=== PATIENT | female | born 1960 | race African-American/Black ===

== ENCOUNTER → 2017-01-13 | Outpatient (CLI) | payer OTHER ==
--- NOTE | 2017-01-13 19:15 | PN ---
This patient is a 56-year-old female patient underwent a split-night study and she was found to have again severe symptomatic obstructive sleep apnea with an AHI of 52.8. Subsequently she was titrated at CPAP pressure of 9 cm of water and today the patient is coming in for a CPAP compliancy check. The patient is very happy with this new CPAP machine. She is wearing it every night without any interruption and her CPAP compliance data shows that she has been CPAP therapy every night and her CPAP compliancy is around 100% and she is achieving more than 4 hours of CPAP use every night. Her average CPAP use is around 9 hours per night. Leak factor is 19 liters and the patient's AHI while on treatment is down to 1.6. The patient is utilizing a Mirage FX nose pillow. She is benefiting from the treatment. She is waking up alert and awake during the day and her sleep has improved considerably and her sleep quality at night is improved. She is not waking up as much for any breathing difficulties. Her current vital signs are as follows: Her temperature is 97.9. Pulse is 69, respirations 14. [place] score is 7. Saturation 95% on room air. Weight is 242. Her blood pressure is 128/71. GENERAL APPEARANCE: Obese, calm, comfortable. HEENT: Short neck, crowding of the posterior pharynx. Mallampati class IV. LUNGS: Clear to auscultation. HEART: Sounds are regular rate and rhythm. Normal S1, S2. No S3, no S4. No murmurs. ABDOMEN: Soft, nontender. No organomegaly. EXTREMITIES: No edema. No cyanosis or clubbing. IMPRESSION: 1. Severe symptomatic obstructive sleep apnea, apnea-hypopnea index of 52. Currently utilizing CPAP with good compliance and clinical response. 2. Hypersomnia, improved. [place] score is down to 7. 3. Morbid obesity. 4. Diabetes. 5. Hyperlipidemia. 6. Hypothyroidism. 7. Bronchial asthma. PLAN: 1. Continue CPAP at the same level of pressure, which is 9 cm of water with a C-Flex of 3 utilizing a Mirage FX nose mask. 2. Compliancy data was checked and the patient is utilizing the machine without any major difficulties. 3. Encourage weight loss. 4. See me back in a year's time; earlier if needed.
== END | disposition home or self-care (01) ==
LOC: SLEEP 14:18
PROVIDERS: ATTEND Internal Medicine Critical Care Medicine
DX: G47.33 Obstructive sleep apnea (adult) (pediatric) (principal); G47.10 Hypersomnia, unspecified; E66.01 Morbid (severe) obesity due to excess calories

== ENCOUNTER 2017-10-06 05:52 | Emergency (ER) | payer BC, OTHER ==
[2017-10-06 05:59] VITALS: BP 140/69; PULSE 79; RESP 20; TEMP 98.1
[2017-10-06 06:08] LABS: Glucose,Whole Blood 193 mg/dL (75-99)
--- NOTE | 2017-10-06 06:32 | ED ---
Recheck HPI - General Chief Complaint: Recheck/Abnormal Lab/Rx Stated Complaint: High blood sugar Time Seen by Provider: 10/06/17 06:11 Source: patient Mode of arrival: ambulatory Limitations: no limitations - History of Present Illness Initial Comments: This patient is a 57-year-old woman who presents to be evaluated for hyperglycemia. The patient states that she had checked her blood sugar tonight and found to be greater than 500. She does state that she has been taking a number of xkku-ojn-rwgqncy medications for upper respiratory infection. She has had nasal and sinus congestion for going on 2 days, with a cough with a little bit of light yellow sputum. She denies any chest symptoms. She is not having dyspnea or chest congestion. She is not having pain. No fever or chills. MD Complaint: other (Elevated blood sugar) -: minutes(s) Symptoms Since Prior Visit: no new symptoms Associated Symptoms: other (Cough and congestion) - Related Data Home Medications Medication Instructions Recorded Confirmed LORazepam [Ativan] 1 mg PO BID PRN 10/12/15 12/12/15 Thyroid,Pork [[place] Thyroid] 15 mg PO DAILY 10/12/15 12/12/15 Atorvastatin [Lipitor] 40 mg PO HS 12/12/15 12/12/15 Venlafaxine HCl ER [Effexor XR] 150 mg PO HS 12/12/15 12/12/15 Previous Rx's Medication Instructions Recorded Insulin Glargine,Hum.rec.anlog 20 unit SQ HS #2 pen 12/16/15 [Lantus Solostar] Albuterol Nebulized [Ventolin 2.5 mg INHALATION Q6H PRN #30 nebu 12/21/15 Nebulized] Beclomethasone Dipropionate [Qvar 1 puff INHALATION BID #1 inhaler 12/21/15 40 mcg/puff] Cefuroxime Axetil [Ceftin] 500 mg PO DAILY #7 tablet 12/21/15 Levofloxacin [Levaquin] 750 mg PO DAILY #7 tab 12/21/15 Montelukast [Singulair] 10 mg PO HS #30 tab 12/21/15 glipiZIDE XL [Glucotrol XL] 10 mg PO AC-BRKFST #30 tab.er.24 12/21/15 predniSONE 10 mg PO DIRECTED #20 tab 12/21/15 Allergies Allergy/AdvReac Type Severity Reaction Status Date / Time codeine AdvReac Nausea & Verified 10/06/17 05:59 Vomiting Sulfa (Sulfonamide AdvReac Nausea & Verified 10/06/17 05:59 Antibiotics) Vomiting Review of Systems ROS Statement: Those systems with pertinent positive or pertinent negative responses have been documented in the HPI. ROS Other: All systems not noted in ROS Statement are negative. Constitutional: Denies: fever, chills ENT: Reports: congestion. Denies: ear pain Respiratory: Reports: cough. Denies: dyspnea, wheezes, hemoptysis Cardiovascular: Denies: chest pain, palpitations Endocrine: Denies: polydipsia, polyuria Gastrointestinal: Denies: nausea, vomiting Genitourinary: Denies: dysuria Neurological: Denies: headache Past Medical History Past Medical History: Asthma, Diabetes Mellitus, Hyperlipidemia, Sleep Apnea/ CPAP/BIPAP, Thyroid Disorder Additional Past Medical History / Comment(s): DIET CONTROLLED DIABETIC NOW R/T WEIGHT LOSS History of Any Multi-Drug Resistant Organisms: None Reported Past Surgical History: Breast Surgery, Section, Cholecystectomy Additional Past Surgical History / Comment(s): DEMETRIA FUNDOPLASTY, partial THYROIDECTOMY. LEFT BREAST BENIGN lumpectomy Past Anesthesia/Blood Transfusion Reactions: No Reported Reaction Past Psychological History: Anxiety, Depression Smoking Status: Former smoker Past Alcohol Use History: None Reported Past Drug Use History: None Reported - Past Family History Father History Unknown: Yes Family Medical History: Diabetes Mellitus General Exam Limitations: no limitations General appearance: alert, in no apparent distress Head exam: Present: atraumatic, normocephalic ENT exam: Present: normal oropharynx Respiratory exam: Present: normal lung sounds bilaterally. Absent: respiratory distress, wheezes, rales, rhonchi, stridor Cardiovascular Exam: Present: regular rate, normal rhythm, normal heart sounds. Absent: systolic murmur, diastolic murmur, rubs, gallop Extremities exam: Present: normal inspection, normal capillary refill Neurological exam: Present: alert Skin exam: Present: warm, dry, intact, normal color. Absent: rash Course Vital Signs 10/06/17 05:55 Temperature 98.1 F Pulse Rate 79 Respiratory 20 Rate Blood Pressure 140/69 O2 Sat by Pulse 98 Oximetry Medical Decision Making - Lab Data Lab Results 10/06/17 Range/Units 06:05 POC Glucose (mg/dL) 193 H (75-99) mg/dL POC Glu Efficiency Expert ID Saritha Kuo Disposition Clinical Impression: Upper respiratory infection, No problem, feared complaint unfounded Disposition: HOME SELF-CARE Condition: Good Instructions: Upper Respiratory Infection (ED) Referrals: Sammi Mendez MD [Primary Care Provider] - 1-2 days
== END 2017-10-06 06:41 | disposition home or self-care (01) ==
LOC: EC 05:52
DX: J06.9 Acute upper respiratory infection, unspecified (principal); Z71.1 Person with feared health complaint in whom no diagnosis is made; E78.5 Hyperlipidemia, unspecified; E07.9 Disorder of thyroid, unspecified; G47.30 Sleep apnea, unspecified; Z99.89 Dependence on other enabling machines and devices; F32.9 Major depressive disorder, single episode, unspecified; F41.9 Anxiety disorder, unspecified; Z87.891 Personal history of nicotine dependence; Z79.899 Other long term (current) drug therapy; Z88.2 Allergy status to sulfonamides; Z88.5 Allergy status to narcotic agent
CPT/HCPCS: 36415; 99283

== ENCOUNTER 2022-02-23 14:10 | Emergency (ER) | payer OTHER ==
[2022-02-23] MEDS ORDERED: KETOROLAC 15 MG/ML 1 ML VIAL IVP STA (14:17)
[2022-02-23 14:22] VITALS: RESP 18
[2022-02-23 14:42] LABS: Basophils % (A) 1 %; Eosinophils # (A) 0.1 k/uL (0-0.7); Eosinophils % (A) 2 %; HCT 43.1 % (34.0-46.0); HGB 13.1 gm/dL (11.4-16.0); Lymphocytes # (A) 2.9 k/uL (1.0-4.8); Lymphocytes % (A) 48 %; MCH 26.4 pg (25.0-35.0); MCHC 30.4 g/dL (31.0-37.0); MCV 86.8 fL (80.0-100.0); Mean Platelet Volume 7.7; Monocytes # (A) 0.2 k/uL (0-1.0); Monocytes % (A) 4 %; Neutrophils # (A) 2.6 k/uL (1.3-7.7); Neutrophils % (A) 43 %; Platelet Count 269 k/uL (150-450); RBC 4.97 m/uL (3.80-5.40); RDW 13.5 % (11.5-15.5)
[2022-02-23 14:53] LABS: INR 0.9 (<1.2)
[2022-02-23 14:54] LABS: Partial Thromboplastin Time 23.3 sec (22.0-30.0); Prothrombin Time 9.9 sec (9.0-12.0)
--- NOTE | 2022-02-23 15:06 | XR ---
EXAMINATION TYPE: XR chest 2V DATE OF EXAM: 02/23/2022 2:59 PM COMPARISON: Chest radiographs from 09/15/2017 TECHNIQUE: XR chest 2V Frontal and lateral views of the chest. CLINICAL INDICATION:Female, 61 years old with history of Chest Pain; FINDINGS: Lungs/Pleura: There is no evidence of pleural effusion, focal consolidation, or pneumothorax. Pulmonary vascularity: Unremarkable. Heart/mediastinum: Cardiomediastinal silhouette is unremarkable. Musculoskeletal: No acute osseous pathology. IMPRESSION: No acute cardiopulmonary disease/process.
--- NOTE | 2022-02-23 15:06 | XR ---
EXAMINATION TYPE: XR cervical spine comp DATE OF EXAM: 02/23/2022 2:59 PM INDICATION: Patient age:Female; 61 years old; Reason for study: pain COMPARISON: None TECHNIQUE: The cervical spine was imaged in frontal, lateral, odontoid, swimmer's, and bilateral obli que. FINDINGS: Evidence of acute fracture. No spinal listhesis. Straightening of the cervical spine probably due to patient position versus muscle spasm. Degenerative disc disease with mild disc space narrowing and an terior osteophytosis. The intervertebral disk spaces are preserved. Pedicles are intact. Soft tissu es are within normal limits. The odontoid appears intact. IMPRESSION: 1. No fracture or dislocation. 2. Mild degenerative disc disease changes of the cervical spine.
[2022-02-23 15:09] LABS: ALT 18 U/L (4-34); AST 31 U/L (14-36); African American GFR (CKD) >90 (>60 ml/min/1.73 sqM); Albumin 4.2 g/dL (3.5-5.0); Alkaline Phosphatase 90 U/L (38-126); Anion Gap 8 mmol/L; Blood Urea Nitrogen 7 mg/dL (7-17); Calcium 9.2 mg/dL (8.4-10.2); Carbon Dioxide 24 mmol/L (22-30); Chloride 103 mmol/L (98-107); Glucose 230 mg/dL (74-99); Magnesium 1.6 mg/dL (1.6-2.3); Non-African American GFR(CKD) >90 (>60 ml/min/1.73 sqM); Sodium 135 mmol/L (137-145); Total Bilirubin 0.5 mg/dL (0.2-1.3); Total Protein 7.4 g/dL (6.3-8.2)
[2022-02-23 15:14] LABS: Potassium 4.6 mmol/L (3.5-5.1)
[2022-02-23] MEDS ORDERED: HYDROmorphone 0.5 MG/0.5 ML SYRINGE IVP STA (15:33)
[2022-02-23] MEDS ORDERED: ONDANSETRON 4 MG/2 ML VIAL IVP STA (15:33)
--- NOTE | 2022-02-23 16:01 | ED ---
General Adult HPI - General Source: patient, EMS, RN notes reviewed Mode of arrival: EMS Limitations: no limitations <Donal Lovell - Last Filed: 02/23/22 15:59> <German Sosa - Last Filed: 02/23/22 21:39> - General Chief complaint: Neck Pain/Injury Stated complaint: neck pain Time Seen by Provider: 02/23/22 14:13 - History of Present Illness Initial comments: This a 61-year-old female presents emergency Department chief complaint of left- sided neck pain. Patient states that this started a few R's ago. Patient went to urgent care and sent here for further evaluation. Patient did receive aspirin from urgent care in which she states her pain is now 7/10. She states is constant pain but upset worsening symptoms and radiates to her left arm. She denies any lower anterior chest pain. Denies any back pain she does admit that she's on Effexor has had some lung disease and has been on medications for diabetes. Patient denies juncture breath no diaphoretic episodes of vomiting. (Donal Lovell) - Related Data Home Medications Medication Instructions Recorded Confirmed LORazepam [Ativan] 1 mg PO BID PRN 10/12/15 12/12/15 Thyroid,Pork [[place] Thyroid] 15 mg PO DAILY 10/12/15 12/12/15 Atorvastatin [Lipitor] 40 mg PO HS 12/12/15 12/12/15 Venlafaxine HCl ER [Effexor XR] 150 mg PO HS 12/12/15 12/12/15 Previous Rx's Medication Instructions Recorded Insulin Glargine,Hum.rec.anlog 20 unit SQ HS #2 pen 12/16/15 [Lantus Solostar Pen] Albuterol Nebulized [Ventolin 2.5 mg INHALATION Q6H PRN #30 nebu 12/21/15 Nebulized] Beclomethasone Dipropionate [Qvar 1 puff INHALATION BID #1 inhaler 12/21/15 40 mcg/puff] Cefuroxime Axetil [Ceftin] 500 mg PO DAILY #7 tablet 12/21/15 Levofloxacin [Levaquin] 750 mg PO DAILY #7 tab 12/21/15 Montelukast [Singulair] 10 mg PO HS #30 tab 12/21/15 glipiZIDE XL [Glucotrol XL] 10 mg PO AC-BRKFST #30 tab.er.24 12/21/15 predniSONE 10 mg PO DIRECTED #20 tab 12/21/15 methocarbamoL [Robaxin-750] 750 mg PO TID PRN 7 Days #21 tab 02/23/22 Allergies Allergy/AdvReac Type Severity Reaction Status Date / Time codeine AdvReac Nausea & Verified 10/06/17 05:59 Vomiting Sulfa (Sulfonamide AdvReac Nausea & Verified 10/06/17 05:59 Antibiotics) Vomiting Review of Systems ROS Other: All systems not noted in ROS Statement are negative. <Donal Lovell - Last Filed: 02/23/22 15:59> ROS Other: All systems not noted in ROS Statement are negative. <German Sosa - Last Filed: 02/23/22 21:39> ROS Statement: Those systems with pertinent positive or pertinent negative responses have been documented in the HPI. Past Medical History Past Medical History: Asthma, Diabetes Mellitus, Hyperlipidemia, Sleep Apnea/CPAP/BIPAP, Thyroid Disorder Additional Past Medical History / Comment(s): DIET CONTROLLED DIABETIC NOW R/T WEIGHT LOSS History of Any Multi-Drug Resistant Organisms: None Reported Past Surgical History: Breast Surgery, Section, Cholecystectomy Additional Past Surgical History / Comment(s): DEMETRIA FUNDOPLASTY, partial T HYROIDECTOMY. LEFT BREAST BENIGN lumpectomy Past Anesthesia/Blood Transfusion Reactions: No Reported Reaction Past Psychological History: Anxiety, Depression Smoking Status: Never smoker Past Alcohol Use History: None Reported Past Drug Use History: None Reported - Past Family History Father History Unknown: Yes Family Medical History: Diabetes Mellitus <Donal Lovell - Last Filed: 02/23/22 15:59> General Exam Limitations: no limitations General appearance: alert, in no apparent distress Head exam: Present: atraumatic, normocephalic, normal inspection Eye exam: Present: normal appearance, PERRL, EOMI. Absent: scleral icterus, conjunctival injection, periorbital swelling ENT exam: Present: normal exam, normal oropharynx, mucous membranes moist Neck exam: Present: normal inspection, full ROM. Absent: tenderness, meningismus, lymphadenopathy Respiratory exam: Present: normal lung sounds bilaterally. Absent: respiratory distress, wheezes, rales, rhonchi, stridor Cardiovascular Exam: Present: regular rate, normal rhythm, normal heart sounds. Absent: systolic murmur, diastolic murmur, rubs, gallop, clicks GI/Abdominal exam: Present: soft, normal bowel sounds. Absent: distended, tenderness, guarding, rebound, rigid Extremities exam: Present: other (Upper extremity strength equal bilaterally, radial pulses equal) Neurological exam: Present: alert <Donal Lovell - Last Filed: 02/23/22 15:59> Course Vital Signs 02/23/22 02/23/22 02/23/22 14:19 15:48 18:02 Temperature 97.8 F 98 F Pulse Rate 63 61 63 Respiratory 18 18 18 Rate Blood Pressure 129/78 109/73 110/70 O2 Sat by Pulse 99 99 96 Oximetry Medical Decision Making - Lab Data Result diagrams: 02/23/22 14:34 02/23/22 14:34 <Donal Lovell - Last Filed: 02/23/22 15:59> - Lab Data Result diagrams: 02/23/22 14:34 02/23/22 14:34 <German Sosa - Last Filed: 02/23/22 21:39> - Medical Decision Making Patient signed out pending results of CT imaging. Presents for sudden onset of left-sided neck pain of unknown etiology. Workup thus far is unremarkable. I updated the patient regarding the CT angiogram which was pending. It was within normal limits. We discussed she is likely experiencing muscle skeletal pain. Will be given muscle relaxers for home and follow up with PCP. She was in agreement this plan. Remainder the workup is unremarkable. Never had chest pain. No other symptoms. I instructed the patient to follow up with their PCP in the next 1-3 days. I explained that the patient should return to the emergency department if they experience any worsening symptoms. Strict return precautions were discussed with the patient. The patient expressed understanding of these instructions. I answered all questions that the patient had. The patient was discharged home in good condition with their prescriptions and follow up information. (German Sosa) - Lab Data Lab Results 02/23/22 02/23/22 02/23/22 Range/Units 14:34 14:34 14:34 WBC 6.0 (3.8-10.6) k/uL RBC 4.97 (3.80-5.40) m/uL Hgb 13.1 (11.4-16.0) gm/dL Hct 43.1 (34.0-46.0) % MCV 86.8 (80.0-100.0) fL MCH 26.4 (25.0-35.0) pg MCHC 30.4 L (31.0-37.0) g/dL RDW 13.5 (11.5-15.5) % Plt Count 269 (150-450) k/uL MPV 7.7 Neutrophils % 43 % Lymphocytes % 48 % Monocytes % 4 % Eosinophils % 2 % Basophils % 1 % Neutrophils # 2.6 (1.3-7.7) k/uL Lymphocytes # 2.9 (1.0-4.8) k/uL Monocytes # 0.2 (0-1.0) k/uL Eosinophils # 0.1 (0-0.7) k/uL Basophils # 0.0 (0-0.2) k/uL PT 9.9 (9.0-12.0) sec INR 0.9 (<1.2) APTT 23.3 (22.0-30.0) sec Sodium 135 L (137-145) mmol/L Potassium 4.6 (3.5-5.1) mmol/L Chloride 103 (98-107) mmol/L Carbon Dioxide 24 (22-30) mmol/L Anion Gap 8 mmol/L BUN 7 (7-17) mg/dL Creatinine 0.47 L (0.52-1.04) mg/dL Est GFR (CKD-EPI)AfAm >90 (>60 ml/min/1.73 sqM) Est GFR (CKD-EPI)NonAf >90 (>60 ml/min/1.73 sqM) Glucose 230 H (74-99) mg/dL Calcium 9.2 (8.4-10.2) mg/dL Magnesium 1.6 (1.6-2.3) mg/dL Total Bilirubin 0.5 (0.2-1.3) mg/dL AST 31 (14-36) U/L ALT 18 (4-34) U/L Alkaline Phosphatase 90 (38-126) U/L Troponin I (0.000-0.034) ng/mL Total Protein 7.4 (6.3-8.2) g/dL Albumin 4.2 (3.5-5.0) g/dL 02/23/22 Range/Units 14:34 WBC (3.8-10.6) k/uL RBC (3.80-5.40) m/uL Hgb (11.4-16.0) gm/dL Hct (34.0-46.0) % MCV (80.0-100.0) fL MCH (25.0-35.0) pg MCHC (31.0-37.0) g/dL RDW (11.5-15.5) % Plt Count (150-450) k/uL MPV Neutrophils % % Lymphocytes % % Monocytes % % Eosinophils % % Basophils % % Neutrophils # (1.3-7.7) k/uL Lymphocytes # (1.0-4.8) k/uL Monocytes # (0-1.0) k/uL Eosinophils # (0-0.7) k/uL Basophils # (0-0.2) k/uL PT (9.0-12.0) sec INR (<1.2) APTT (22.0-30.0) sec Sodium (137-145) mmol/L Potassium (3.5-5.1) mmol/L Chloride (98-107) mmol/L Carbon Dioxide (22-30) mmol/L Anion Gap mmol/L BUN (7-17) mg/dL Creatinine (0.52-1.04) mg/dL Est GFR (CKD-EPI)AfAm (>60 ml/min/1.73 sqM) Est GFR (CKD-EPI)NonAf (>60 ml/min/1.73 sqM) Glucose (74-99) mg/dL Calcium (8.4-10.2) mg/dL Magnesium (1.6-2.3) mg/dL Total Bilirubin (0.2-1.3) mg/dL AST (14-36) U/L ALT (4-34) U/L Alkaline Phosphatase (38-126) U/L Troponin I <0.012 (0.000-0.034) ng/mL Total Protein (6.3-8.2) g/dL Albumin (3.5-5.0) g/dL Disposition <Donal Lovell - Last Filed: 02/23/22 15:59> Is patient prescribed a controlled substance at d/c from ED?: No Time of Disposition: 17:30 <German Sosa - Last Filed: 02/23/22 21:39> Clinical Impression: Neck pain Disposition: HOME SELF-CARE Condition: Good Instructions (If sedation given, give patient instructions): Cervical Sprain (ED) Prescriptions: methocarbamoL [Robaxin-750] 750 mg PO TID PRN 7 Days #21 tab PRN Reason: Pain Referrals: None,Stated [Primary Care Provider] - 1-2 days
--- NOTE | 2022-02-23 17:17 | CT ---
EXAMINATION TYPE: CT angio neck CT DLP: 813.3 mGycm, Automated exposure control for dose reduction was used. DATE OF EXAM: 02/23/2022 5:03 PM COMPARISON: Cervical spine radiograph the same date. CLINICAL INDICATION:Female, 61 years old with history of left side neck pain; TECHNIQUE: Axially acquired helical CT angiogram of neck was obtained with contrast utilizing 65 cc o f Isovue-370 administered intravenously. Axial images are supplemented with 3D reconstructions which were post-processed at an independent workstation. NASCET criteria used. FINDINGS: CTA NECK: Right Carotid System: The common carotid artery and external carotid artery are patent. Minimal calcified plaque at the car otid bifurcation. The carotid bifurcation demonstrates no evidence of hemodynamically significant monica nosis. The remaining portions of the internal carotid artery demonstrate normal size without signific ant narrowing. Left Carotid System: The common carotid artery and external carotid artery are patent. Minimal calcified plaque at the car otid bifurcation. The carotid bifurcation demonstrates no evidence of hemodynamically significant monica nosis. The remaining portions of the internal carotid artery demonstrate normal size without signific ant narrowing. Vertebral arteries are patent without evidence hemodynamically significant stenosis. Left vertebral a rtery is dominant. There is a three-vessel aortic arch. The origins of the great vessels are patent. No evidence of hemo dynamically significant stenosis. Residual left thyroid tissue remaining. The right thyroid lobe is u nremarkable. IMPRESSION: No evidence of dissection of the cervical internal carotid arteries or vertebral arteries or any evid ence of significant stenosis at the carotid bifurcations.
[2022-02-23 18:04] VITALS: BP 110/70; PULSE 63; TEMP 98
== END 2022-02-23 18:02 | disposition home or self-care (01) ==
LOC: EC 14:10
DX: M54.2 Cervicalgia (principal); E11.9 Type 2 diabetes mellitus without complications; E78.5 Hyperlipidemia, unspecified; E07.9 Disorder of thyroid, unspecified; J45.909 Unspecified asthma, uncomplicated; Z88.5 Allergy status to narcotic agent; Z88.2 Allergy status to sulfonamides; Z79.890 Hormone replacement therapy; Z79.899 Other long term (current) drug therapy
CPT/HCPCS: 36415; 93005; 80053; 83735; 84484; 85025; 85610; 85730; 72050; 71046; 70498; 99284; 96374; 96375; J2405; J1885; J1170; Q9967

== ENCOUNTER → 2024-02-29 | Outpatient (CLI) | payer OTHER ==
--- NOTE | 2024-02-29 09:56 | FL ---
EXAMINATION TYPE: FL UGI air w esophagus DATE OF EXAM: 02/29/2024 8:30 AM CLINICAL INDICATION:Female, 63 years old with history of K21.9 GERD; COMPARISON: 12/13/2015 TECHNIQUE: The procedure was explained and patient history elicited. All patient questions were ans wered prior to start of procedure. A baseball scout radiograph of the abdomen was also reviewed. Multiple flu oroscopic spot images of the esophagus, stomach and duodenum were obtained following ingestion of liq uid barium and EZ-gas crystals. Fluoroscopic time: 1 Min 34 seconds Fluoroscopic images:0 Radiographs taken: 128 DAP: Not reported [id number] FINDINGS: The esophagus appears unremarkable without evidence of focal stricture, ulceration or abnormal outpou reagan. Tertiary contractions are seen in distal esophagus. No hiatal hernia was visualized. No evide nce of gastroesophageal reflux was seen. The stomach and duodenum demonstrate a normal course and con tour. There is no evidence of focal gastric or duodenal ulceration, stricture, or abnormal outpouchi ng. IMPRESSION: Esophageal dysmotility in an otherwise normal examination.
== END | disposition home or self-care (01) ==
LOC: RADFLMAIN 07:29
PROVIDERS: ATTEND Surgery
DX: K21.9 Gastro-esophageal reflux disease without esophagitis (principal); K22.4 Dyskinesia of esophagus
CPT/HCPCS: 74246

== ENCOUNTER → 2024-07-05 | Outpatient (CLI) | payer OTHER ==
[2024-07-05 13:54] VITALS: BP 142/81; PULSE 82; RESP 16; TEMP 98
--- NOTE | 2024-07-05 14:24 | P.SLEEP ---
History of Present Illness H&P Date: 07/05/24 This is a 64-year-old -[place] female patient, Holiness, who is coming into update her CPAP machine. The patient is known to me. Her last encounter with me was back in 2017. She is a longtime CPAP user. She has undergone a split-night study at the time of original diagnosis and the patient was diagnosed having severe symptomatic obstructive sleep apnea with an AHI of 58 and following that the patient was given a CPAP pressure of 9 cm of water. Over the years, the patient has remained extremely compliant to her CPAP therapy and the patient utilized the machine without any major issues. Her current machine is broke and the patient is requesting a new machine. Over the years, she has remained extremely compliant and while on treatment, the patient has not encountered any major hypersomnia or sleepiness. She uses her machine every night. No snoring while on the machine. For now, she sleep between midnight and 9 AM in the morning. No major hypersomnia or sleepiness during the day. Since 2017, the patient has lost weight and her current weight is down to 215 fr om a baseline of 242. She has diabetes mellitus type 2, hyperlipidemia and hypothyroidism and history of bronchial asthma which is currently inactive and stable. No sleepwalking. No sleep talking. Mostly paralysis. No hallucination or cataplexy. No history of any motor vehicle accidents because of feeling drowsy or sleepy. No reported restlessness in her lower extremities. No grinding. No palpitations. No heartburn. No issues with memory or concentration as long as she is maintained on her CPAP machine. She is using a Mirage fx nasal mask. She requested on staying on the same or a similar nasal mask interface. Review of Systems Constitutional: Reports weight loss Eyes: denies as per HPI, denies blurred vision, denies bulging eye, denies decreased vision, denies diplopia, denies discharge, denies dry eye, denies irritation, denies itching, denies pain, denies photophobia, denies loss of peripheral vision, denies loss of vision, denies tunnel vision/blind spots Ears: deny: decreased hearing, ear discharge, earache, tinnitus Ears, nose, mouth and throat: Reports as per HPI Breasts: absent: as per HPI, change in shape, gynecomastia, masses, nipple discharge, pain, skin changes, swelling Breasts: Reports as per HPI Cardiovascular: Reports as per HPI Respiratory: Reports sleep apnea Gastrointestinal: Reports as per HPI Genitourinary: Reports as per HPI Menstruation: Reports as per HPI Musculoskeletal: Reports as per HPI Musculoskeletal: absent: ankle pain, ankle stiffness, ankle swelling, as per HPI, elbow pain, elbow stiffness, elbow swelling, foot pain, foot stiffness, foot swelling, hand pain, hand stiffness, hand swelling, hip pain, hip stiffness, hip swelling, knee pain, knee stiffness, knee swelling, shoulder pain, shoulder stiffness, shoulder swelling, wrist pain, wrist stiffness, wrist swelling Integumentary: Reports as per HPI Neurological: Reports as per HPI Psychiatric: Reports as per HPI Endocrine: Reports as per HPI Hematologic/Lymphatic: Reports as per HPI Allergic/Immunologic: Reports as per HPI Past Medical History Past Medical History: Asthma, Diabetes Mellitus, Hyperlipidemia, Sleep Apnea/CPAP/BIPAP, Thyroid Disorder Additional Past Medical History / Comment(s): DIET CONTROLLED DIABETIC NOW R/T WEIGHT LOSS History of Any Multi-Drug Resistant Organisms: None Reported Past Surgical History: Breast Surgery, Section, Cholecystectomy Additional Past Surgical History / Comment(s): DEMETRIA FUNDOPLASTY, partial THYROIDECTOMY. LEFT BREAST BENIGN lumpectomy Past Anesthesia/Blood Transfusion Reactions: No Reported Reaction Past Psychological History: Anxiety, Depression Additional Psychological History / Comment(s): SEVERE ANXIETY Smoking Status: Never smoker Past Alcohol Use History: None Reported Additional Past Alcohol Use History / Comment(s): QUIT: 2005. STARTED 1995 PPD: 1 Past Drug Use History: None Reported - Past Family History Father History Unknown: Yes Family Medical History: Diabetes Mellitus Medications and Allergies Home Medications and Allergies Comment(s): Patient was unable to bring her medication list. Among the medications that she remembers is Effexor 150 mg p.o. daily. Home Medications Medication Instructions Recorded Confirmed Type Venlafaxine HCl ER [Effexor XR] 150 mg PO HS 12/12/15 07/05/24 History Allergies Allergy/AdvReac Type Severity Reaction Status Date / Time codeine AdvReac Nausea & Verified 03/03/24 07:21 Vomiting Sulfa (Sulfonamide AdvReac Nausea & Verified 03/03/24 07:21 Antibiotics) Vomiting Physical Exam Vitals: Vital Signs Temp Pulse Resp BP Pulse Ox 07/05/24 13:53 98 F 82 16 142/81 98 Intake and Output 07/04/24 07/05/24 07/05/24 22:59 06:59 14:59 Other: Weight 97.522 kg The patient appeared well nourished and normally developed. Vital signs as documented. Head exam is unremarkable. No scleral icterus or corneal arcus noted. Neck is without jugular venous distension, thyromegaly, or carotid bruits. Carotid upstrokes are brisk bilaterally. Lungs are clear to auscultation and percussion. Cardiac exam reveals the PMI to be normally sized and situated. Rhythm is regular. First and second heart sounds normal. No murmurs, rubs or gallops. Abdominal exam reveals normal bowel sounds, no masses, no organomegaly and no aortic enlargement. Extremities are nonedematous and both femoral and pedal pulses are normal. Examination of the skin revealed no evidence of significant rashes, suspicious appearing nevi or other concerning lesions. Neurologically, the patient is awake and alert and the patient does not have any focal neurological deficit. Cranial nerves are essentially intact. Assessment and Plan Plan: Severe symptomatic obstructive sleep apnea. The patient had a split-night study back in 2017 patient was diagnosed having severe ROXY with an AHI of 52.8 and the patient is currently on CPAP pressure of 9 cm of water. Her current machine is broken and the patient is requesting a new CPAP unit. Over the years, she has demonstrated excellent compliancy and clinical response. She has also lost weight. No major hypersomnia or sleepiness as long as she is maintaining CPAP therapy. Her current Flournoy score is 8. No other cardiovascular complications. She has diabetes and has hyperlipidemia and history of hypothyroidism. Diabetes mellitus type 2 Hyperlipidemia Hypothyroidism Mild intermittent bronchial asthma Obesity with a current BMI of 32.8. Patient has lost weight. Plan This patient is a longtime CPAP user. Do not see the need to repeat her sleep study at this point in time. I am going to offer her a new CPAP machine through her DME, [facility] and the patient is going to be offered a ResMed 11 of the CPAP pressure of 9 cm of water with C-Flex of 3. I am going to switch her to an AirFit N20 medium size nasal mask. The patient will see back in office in 30 to 90 days to assess her clinical response and compliancy. If needed, home sleep study will be also obtained to confirm presence of sleep apnea and establish ongoing need of treatment. Maintain good sleep hygiene measures. Encouraged further weight loss Comorbidities are negative and stable Will continue to follow Sleep Note - Sleep Data ESS Total: 8 - Sleep Note Sleep Note: Temperature: 98 F Pulse Rate: 82 Respiratory Rate: 16 Blood Pressure: 142/81 SpO2: 98 Height: 5 ft 8 in Weight: 97.522 kg BMI: Neck Circumference: 15
== END ==
LOC: 3 N SLEEP 13:13
PROVIDERS: ATTEND Internal Medicine Critical Care Medicine
DX: G47.33 Obstructive sleep apnea (adult) (pediatric) (principal); Z99.89 Dependence on other enabling machines and devices; E11.9 Type 2 diabetes mellitus without complications; E78.5 Hyperlipidemia, unspecified; E03.9 Hypothyroidism, unspecified; J45.20 Mild intermittent asthma, uncomplicated; E66.9 Obesity, unspecified; Z68.32 Body mass index [BMI] 32.0-32.9, adult; Z87.891 Personal history of nicotine dependence; Z88.2 Allergy status to sulfonamides; Z88.5 Allergy status to narcotic agent
CPT/HCPCS: 99211

== ENCOUNTER 2024-09-24 20:35 | Inpatient (IN) | payer OTHER ==
--- NOTE | 2024-09-24 21:20 | ED ---
General Adult HPI - General Chief complaint: Weakness Stated complaint: weakness Time Seen by Provider: 09/24/24 21:06 Source: patient, RN notes reviewed, old records reviewed Mode of arrival: wheelchair Limitations: no limitations - History of Present Illness Initial comments: 64-year-old female with increased weakness and fatigue over the past 10 days. Patient states that about 6 days ago she began a keto diet and was also started on Jardiance. She states her symptoms began prior to this. She complains of constipation. No vomiting or diarrhea. No chest pain. She states she has been sneezing but has not had any significant cough. No fever. - Related Data Home Medications Medication Instructions Recorded Confirmed Venlafaxine HCl ER [Effexor XR] 150 mg PO HS 12/12/15 07/05/24 Allergies Allergy/AdvReac Type Severity Reaction Status Date / Time codeine AdvReac Nausea & Verified 09/24/24 20:36 Vomiting Sulfa (Sulfonamide AdvReac Nausea & Verified 09/24/24 20:36 Antibiotics) Vomiting Review of Systems ROS Statement: Those systems with pertinent positive or pertinent negative responses have been documented in the HPI. ROS Other: All systems not noted in ROS Statement are negative. Past Medical History Past Medical History: Asthma, Diabetes Mellitus, Hyperlipidemia, Sleep Apnea/CPAP/BIPAP, Thyroid Disorder Additional Past Medical History / Comment(s): DIET CONTROLLED DIABETIC NOW R/T WEIGHT LOSS History of Any Multi-Drug Resistant Organisms: None Reported Past Surgical History: Breast Surgery, Section, Cholecystectomy Additional Past Surgical History / Comment(s): DEMETRIA FUNDOPLASTY, partial THYROIDECTOMY. LEFT BREAST BENIGN lumpectomy Past Anesthesia/Blood Transfusion Reactions: No Reported Reaction Past Psychological History: Anxiety, Depression Smoking Status: Never smoker Past Alcohol Use History: None Reported Past Drug Use History: None Reported - Past Family History Father History Unknown: Yes Family Medical History: Diabetes Mellitus General Exam Limitations: no limitations General appearance: alert, in no apparent distress Head exam: Present: atraumatic, normocephalic Eye exam: Present: normal appearance, PERRL ENT exam: Present: mucous membranes dry Respiratory exam: Present: normal lung sounds bilaterally. Absent: respiratory distress, wheezes Cardiovascular Exam: Present: regular rate, normal rhythm GI/Abdominal exam: Present: soft. Absent: distended, tenderness, guarding Extremities exam: Present: normal inspection, normal capillary refill Neurological exam: Present: alert, oriented X3, CN II-XII intact. Absent: motor sensory deficit Psychiatric exam: Present: normal affect, normal mood Skin exam: Present: warm, dry, intact Course Vital Signs 09/24/24 09/24/24 20:37 22:37 Temperature 97.4 F L 97.8 F Pulse Rate 104 H 76 Respiratory 20 16 Rate Blood Pressure 143/82 151/83 O2 Sat by Pulse 100 100 Oximetry Medical Decision Making - Medical Decision Making Was pt. sent in by a medical professional or institution (, [place], ASSISTANT CHIEF TRAIN DISPATCHER, urgent care, hospital, or fci...) When possible be specific @ -No Did you speak to anyone other than the patient for history (EMS, parent, family, police, friend...)? What history was obtained from this source @ -No Did you review nursing and triage notes (agree or disagree)? Why? @ -I reviewed and agree with nursing and triage notes Were old charts reviewed (outside hosp., previous admission, EMS record, old EKG, old radiological studies, urgent care reports/EKG's, fci records)? Report findings @ -No old charts were reviewed Differential Weakness: Hypoglycemia, shock, sepsis, hyponatremia, anemia, infection, PA, ETOH, adverse medicine reaction, overdose, stroke, this is not meant to be an all-inclusive list. EKG interpreted by me (3pts min.). @Sinus rhythm rate of 98, OK interval 143, QRS duration 76, QTc [address] segment elevation. X-rays interpreted by me (1pt min.). @ -Chest x-ray negative for focal pneumonia, no acute findings, KUB negative for obstruction CT interpreted by me (1pt min.). @ -None done U/S interpreted by me (1pt. min.). @ -None done What testing was considered but not performed or refused? (CT, X-rays, U/S, labs)? Why? @ -None What meds were considered but not given or refused? Why? @ -None Did you discuss the management of the patient with other professionals (professionals i.e. [place] Chavez, ASSISTANT CHIEF TRAIN DISPATCHER, lab, RT, psych nurse, psychiatric social worker supervisor, music education director, teacher, fisheries officer, bilingual patient support caseworker)? Give summary @Case discussed with Dr. Abid Was smoking cessation discussed for >3mins.? @ -No Was critical care preformed (if so, how long)? @ -[Yes, 35 minutes Were there social determinants of health that impacted care today? How? (Homelessness, low income, unemployed, alcoholism, drug addiction, transportation, low edu. Level, literacy, decrease access to med. care, custodial, rehab)? @ -No Was there de-escalation of care discussed even if they declined (Discuss DNR or withdrawal of care, Hospice)? DNR status @ -No What co-morbidities impacted this encounter? (DM, HTN, Smoking, COPD, CAD, Cancer, CVA, ARF, Chemo, Hep., AIDS, mental health diagnosis, sleep apnea, morbid obesity)? @Diabetes Was patient admitted / discharged? Hospital course, mention meds given and route, prescriptions, significant lab abnormalities, going to OR and other pertinent info. @ -[64-year-old female with weakness, poor appetite. Patient is vital signs stable. She was recently started on Jardiance and started a ketone diet. Patient has laboratory test revealing DKA with an CO2 of 9 anion gap of 23, blood sugar 190. She is acetone positive with ketones 4+ in the urine. Started on normal saline as well as dextrose and insulin drip. Admitted to [facility] emergency department physician group. Undiagnosed new problem with uncertain prognosis? @ -No Drug Therapy requiring intensive monitoring for toxicity (Heparin, Nitro, Insulin, Cardizem)? @ -No Were any procedures done? @ -No Diagnosis/symptom? @DKA, dehydration Acute, or Chronic, or Acute on Chronic? @Acute Uncomplicated (without systemic symptoms) or Complicated (systemic symptoms)? @ -[Complicated Side effects of treatment? @ -No Exacerbation, Progression, or Severe Exacerbation? @ -No Poses a threat to life or bodily function? How? (Chest pain, USA, PA, pneumonia, PE, COPD, DKA, ARF, appy, cholecystitis, CVA, Diverticulitis, Homicidal, Suicidal, threat to staff... and all critical care pts) @Yes, DKA - Lab Data Result diagrams: 09/24/24 21:18 09/24/24 21:18 Lab Results 09/24/24 09/24/24 09/24/24 Range/Units 21:15 21:18 21:18 WBC 7.4 (3.8-10.6) k/uL RBC 5.47 H (3.80-5.40) m/uL Hgb 14.5 (11.4-16.0) gm/dL Hct 47.0 H (34.0-46.0) % MCV 86.0 (80.0-100.0) fL MCH 26.5 (25.0-35.0) pg MCHC 30.8 L (31.0-37.0) g/dL RDW 13.6 (11.5-15.5) % Plt Count 351 (150-450) k/uL MPV 7.4 Neutrophils % 60 % Lymphocytes % 33 % Monocytes % 4 % Eosinophils % 1 % Basophils % 0 % Neutrophils # 4.4 (1.3-7.7) k/uL Lymphocytes # 2.4 (1.0-4.8) k/uL Monocytes # 0.3 (0-1.0) k/uL Eosinophils # 0.1 (0-0.7) k/uL Basophils # 0.0 (0-0.2) k/uL Hypochromasia Slight PT 11.4 (10.0-12.5) sec INR 1.0 (<1.2) APTT 28.2 (22.0-30.0) sec Sodium (137-145) mmol/L Potassium (3.5-5.1) mmol/L Chloride (98-107) mmol/L Carbon Dioxide (22-30) mmol/L Anion Gap mmol/L BUN (7-17) mg/dL Creatinine (0.52-1.04) mg/dL Est GFR (CKD-EPI)AfAm (>60 ml/min/1.73 sqM) Est GFR (CKD-EPI)NonAf (>60 ml/min/1.73 sqM) Glucose (74-99) mg/dL Plasma Lactic Acid Jose Antonio (0.7-2.0) mmol/L Calcium (8.4-10.2) mg/dL Magnesium (1.6-2.3) mg/dL Total Bilirubin (0.2-1.3) mg/dL AST (14-36) U/L ALT (4-34) U/L Alkaline Phosphatase (38-126) U/L Troponin I (0.000-0.034) ng/mL Total Protein (6.3-8.2) g/dL Albumin (3.5-5.0) g/dL Urine Color Colorless Urine Appearance Cloudy H (Clear) Urine pH 5.5 (5.0-8.0) Ur Specific [place] 1.024 (1.001-1.035) Urine Protein 1+ H (Negative) Urine Glucose (UA) 4+ H (Negative) Urine Ketones 4+ H (Negative) Urine Blood Negative (Negative) Urine Nitrite Negative (Negative) Urine Bilirubin Negative (Negative) Urine Urobilinogen 2.0 (<2.0) mg/dL Ur Leukocyte Esterase Negative (Negative) Urine RBC 1 (0-5) /hpf Urine WBC 3 (0-5) /hpf Ur Squamous Epith Cells 10 H (0-4) /hpf Amorphous Sediment Rare H (None) /hpf Urine Bacteria Rare H (None) /hpf Hyaline Casts 45 H (0-2) /lpf Urine Mucus Rare H (None) /hpf Acetone, Qual (Negative) Influenza Type A (PCR) (Not Detectd) Influenza Type B (PCR) (Not Detectd) RSV (PCR) (Not Detectd) SARS-CoV-2 (PCR) (Not Detectd) 09/24/24 09/24/24 09/24/24 Range/Units 21:18 21:18 21:18 WBC (3.8-10.6) k/uL RBC (3.80-5.40) m/uL Hgb (11.4-16.0) gm/dL Hct (34.0-46.0) % MCV (80.0-100.0) fL MCH (25.0-35.0) pg MCHC (31.0-37.0) g/dL RDW (11.5-15.5) % Plt Count (150-450) k/uL MPV Neutrophils % % Lymphocytes % % Monocytes % % Eosinophils % % Basophils % % Neutrophils # (1.3-7.7) k/uL Lymphocytes # (1.0-4.8) k/uL Monocytes # (0-1.0) k/uL Eosinophils # (0-0.7) k/uL Basophils # (0-0.2) k/uL Hypochromasia PT (10.0-12.5) sec INR (<1.2) APTT (22.0-30.0) sec Sodium 133 L (137-145) mmol/L Potassium 4.9 (3.5-5.1) mmol/L Chloride 101 (98-107) mmol/L Carbon Dioxide 9 L* (22-30) mmol/L Anion Gap 23 mmol/L BUN 17 (7-17) mg/dL Creatinine 0.80 (0.52-1.04) mg/dL Est GFR (CKD-EPI)AfAm >90 (>60 ml/min/1.73 sqM) Est GFR (CKD-EPI)NonAf 78 (>60 ml/min/1.73 sqM) Glucose 190 H (74-99) mg/dL Plasma Lactic Acid Jose Antonio 1.9 (0.7-2.0) mmol/L Calcium 9.8 (8.4-10.2) mg/dL Magnesium 1.9 (1.6-2.3) mg/dL Total Bilirubin 0.8 (0.2-1.3) mg/dL AST 30 (14-36) U/L ALT 23 (4-34) U/L Alkaline Phosphatase 85 (38-126) U/L Troponin I <0.012 (0.000-0.034) ng/mL Total Protein 8.3 H (6.3-8.2) g/dL Albumin 4.6 (3.5-5.0) g/dL Urine Color Urine Appearance (Clear) Urine pH (5.0-8.0) Ur Specific [place] (1.001-1.035) Urine Protein (Negative) Urine Glucose (UA) (Negative) Urine Ketones (Negative) Urine Blood (Negative) Urine Nitrite (Negative) Urine Bilirubin (Negative) Urine Urobilinogen (<2.0) mg/dL Ur Leukocyte Esterase (Negative) Urine RBC (0-5) /hpf Urine WBC (0-5) /hpf Ur Squamous Epith Cells (0-4) /hpf Amorphous Sediment (None) /hpf Urine Bacteria (None) /hpf Hyaline Casts (0-2) /lpf Urine Mucus (None) /hpf Acetone, Qual (Negative) Influenza Type A (PCR) (Not Detectd) Influenza Type B (PCR) (Not Detectd) RSV (PCR) (Not Detectd) SARS-CoV-2 (PCR) (Not Detectd) 09/24/24 09/24/24 Range/Units 21:19 22:21 WBC (3.8-10.6) k/uL RBC (3.80-5.40) m/uL Hgb (11.4-16.0) gm/dL Hct (34.0-46.0) % MCV (80.0-100.0) fL MCH (25.0-35.0) pg MCHC (31.0-37.0) g/dL RDW (11.5-15.5) % Plt Count (150-450) k/uL MPV Neutrophils % % Lymphocytes % % Monocytes % % Eosinophils % % Basophils % % Neutrophils # (1.3-7.7) k/uL Lymphocytes # (1.0-4.8) k/uL Monocytes # (0-1.0) k/uL Eosinophils # (0-0.7) k/uL Basophils # (0-0.2) k/uL Hypochromasia PT (10.0-12.5) sec INR (<1.2) APTT (22.0-30.0) sec Sodium (137-145) mmol/L Potassium (3.5-5.1) mmol/L Chloride (98-107) mmol/L Carbon Dioxide (22-30) mmol/L Anion Gap mmol/L BUN (7-17) mg/dL Creatinine (0.52-1.04) mg/dL Est GFR (CKD-EPI)AfAm (>60 ml/min/1.73 sqM) Est GFR (CKD-EPI)NonAf (>60 ml/min/1.73 sqM) Glucose (74-99) mg/dL Plasma Lactic Acid Jose Antonio (0.7-2.0) mmol/L Calcium (8.4-10.2) mg/dL Magnesium (1.6-2.3) mg/dL Total Bilirubin (0.2-1.3) mg/dL AST (14-36) U/L ALT (4-34) U/L Alkaline Phosphatase (38-126) U/L Troponin I (0.000-0.034) ng/mL Total Protein (6.3-8.2) g/dL Albumin (3.5-5.0) g/dL Urine Color Urine Appearance (Clear) Urine pH (5.0-8.0) Ur Specific [place] (1.001-1.035) Urine Protein (Negative) Urine Glucose (UA) (Negative) Urine Ketones (Negative) Urine Blood (Negative) Urine Nitrite (Negative) Urine Bilirubin (Negative) Urine Urobilinogen (<2.0) mg/dL Ur Leukocyte Esterase (Negative) Urine RBC (0-5) /hpf Urine WBC (0-5) /hpf Ur Squamous Epith Cells (0-4) /hpf Amorphous Sediment (None) /hpf Urine Bacteria (None) /hpf Hyaline Casts (0-2) /lpf Urine Mucus (None) /hpf Acetone, Qual Positive (Negative) Influenza Type A (PCR) Not Detected (Not Detectd) Influenza Type B (PCR) Not Detected (Not Detectd) RSV (PCR) Not Detected (Not Detectd) SARS-CoV-2 (PCR) Not Detected (Not Detectd) Critical Care Time Critical Care Time: Yes Total Critical Care Time: 35 Disposition Clinical Impression: Dehydration, DKA (diabetic ketoacidosis) Disposition: ADMITTED IP TO THIS [facility] Condition: Stable Is patient prescribed a controlled substance at d/c from ED?: No Referrals: None,Stated [REFERRING] - 1-2 days Time of Disposition: 23:16
[2024-09-24] MEDS: SODIUM CHLORIDE 0.9% 1,000 ML IV ONE (21:25)
--- NOTE | 2024-09-24 21:44 | XR ---
EXAMINATION TYPE: XR KUB DATE OF EXAM: 09/24/2024 9:29 PM COMPARISON: None. CLINICAL INDICATION: Female, 64 years old with history of Constipation, TECHNIQUE: XR KUB view(s) obtained. FINDINGS: There is a normal bowel gas pattern. Minimal fecal debris is within the splenic flexure proximal desc ending colon. No large fecal bolus is evident. No significant fecal debris is within the distal colon . No free air is evident. No differential air-fluid levels are evident. No mass effect is evident. Psoas margins are normal. No organomegaly is present. IMPRESSION: 1. No significant fecal retention. [facility], , 09/24/2024 9:41 PM
--- NOTE | 2024-09-24 21:48 | XR ---
EXAMINATION TYPE: XR chest 2V DATE OF EXAM: 09/24/2024 9:29 PM COMPARISON: 02/23/2022 CLINICAL INDICATION: Female, 64 years old with history of Weakness, TECHNIQUE: XR chest 2V view(s) obtained. FINDINGS: The heart size is normal. The pulmonary vasculature is normal. The lungs are clear. IMPRESSION: 1. No acute pulmonary process. [facility], , 09/24/2024 9:45 PM
[2024-09-24 21:57] LABS: Basophils % (A) 0 %; Eosinophils # (A) 0.1 k/uL (0-0.7); Eosinophils % (A) 1 %; HGB 14.5 gm/dL (11.4-16.0); Hypochromasia Slight; Lymphocytes # (A) 2.4 k/uL (1.0-4.8); Lymphocytes % (A) 33 %; MCH 26.5 pg (25.0-35.0); MCHC 30.8 g/dL (31.0-37.0); Mean Platelet Volume 7.4; Monocytes # (A) 0.3 k/uL (0-1.0); Monocytes % (A) 4 %; Neutrophils # (A) 4.4 k/uL (1.3-7.7); Neutrophils % (A) 60 %; Platelet Count 351 k/uL (150-450); RBC 5.47 m/uL (3.80-5.40); RDW 13.6 % (11.5-15.5); WBC 7.4 k/uL (3.8-10.6)
[2024-09-24 22:05] LABS: Partial Thromboplastin Time 28.2 sec (22.0-30.0); Prothrombin Time 11.4 sec (10.0-12.5)
[2024-09-24 22:08] LABS: ALT 23 U/L (4-34); African American GFR (CKD) >90 (>60 ml/min/1.73 sqM); Albumin 4.6 g/dL (3.5-5.0); Anion Gap 23 mmol/L; Blood Urea Nitrogen 17 mg/dL (7-17); Calcium 9.8 mg/dL (8.4-10.2); Chloride 101 mmol/L (98-107); Glucose 190 mg/dL (74-99); Non-African American GFR(CKD) 78 (>60 ml/min/1.73 sqM); Sodium 133 mmol/L (137-145); Total Bilirubin 0.8 mg/dL (0.2-1.3); Total Protein 8.3 g/dL (6.3-8.2)
[2024-09-24 22:09] LABS: AST 30 U/L (14-36); Alkaline Phosphatase 85 U/L (38-126); Carbon Dioxide 9 mmol/L (22-30); Magnesium 1.9 mg/dL (1.6-2.3); Potassium 4.9 mmol/L (3.5-5.1)
[2024-09-24 22:26] LABS: Amorphous Sediment,Urine Rare /hpf; Appearance,Urine Cloudy (Clear); Bacteria,Urine Rare /hpf; Bilirubin,Urine Negative (Negative); Blood,Urine Negative (Negative); Color,Urine Colorless; Glucose,Urine (UA) 4+ (Negative); Hyaline Casts,Urine 45 /lpf (0-2); Leukocyte Esterase,Urine Negative (Negative); Mucus,Urine Rare /hpf; Nitrite,Urine Negative (Negative); PH, Urine 5.5 (5.0-8.0); Protein,Urine 1+ (Negative); RBC,Urine 1 /hpf (0-5); Specific Gravity,Urine 1.024 (1.001-1.035); Squamous Epithelial Cell,Urine 10 /hpf (0-4); WBC,Urine 3 /hpf (0-5)
[2024-09-24] MEDS: SODIUM CHLORIDE 0.9% 1,000 ML IV SCH (22:30)
[2024-09-24 22:32] LABS: Influenza A Not Detected (Not Detectd); Influenza B Not Detected (Not Detectd); RSV Not Detected (Not Detectd)
[2024-09-24 23:12] LABS: Ketones,Urine 4+ (Negative)
[2024-09-24 23:19] LABS: VBG PH 7.18 (7.31-7.41)
[2024-09-24] MEDS: D5-0.45% NACL WITH KCL 20MEQ/L 1,000 ML IV SCH (23:42)
[2024-09-24 23:43] LABS: Glucose,Whole Blood 143 mg/dL (70-110)
[2024-09-24] MEDS: INSULIN REGULAR 100 UNIT in SODIUM CHLORIDE 0.9% 100 ML IV SCH (23:44)
[2024-09-25] MEDS ORDERED: ONDANSETRON 4 MG/2 ML VIAL IVP PRN (00:38)
--- NOTE | 2024-09-25 00:44 | P.HPIM ---
History of Present Illness H&P Date: 09/24/24 Patient is a 64-year-old female with asthma, diabetes (controlled with diet and not on any medications), hyperlipidemia, sleep apnea, hypothyroidism, anxiety, depression here for increased weakness. Patient reported that she has been experiencing increased generalized weakness and fatigue for the past 10 days. She has associated nausea, lightheadedness and constipation. 1 week ago, she sought care at a clinic in [place] and was told that she had elevated blood sugars and declining kidney function. She was initiated on Jardiance during that visit and took the medication for 2 days. She also started on a keto diet. Patient noted that her symptoms began to worsen throughout the following days and stopped taking Jardiance. The persistence of symptoms led her to seek care. She denied loss of consciousness, dizziness, facial asymmetry, changes in vision, changes in speech, fever, chills, vomiting, chest pain, palpitations, shortness of breath, leg pain, extremity swelling, recent illness or hospitalization. On admission, KUB x-ray showed no significant fecal retention. Chest x-ray showed no acute pulmonary process. EKG showed sinus rhythm with a rate of 98 bpm, peaked P waves, no ST-T changes, QTc 426 MS. Labs on admission showed WBC 7.4, hemoglobin 14.5, platelet count 351,000, RBC elevated at 547, hematocrit elevated at 47, PTT 28.2, INR 1, PT 11.4, sodium 133, potassium 4.9, chloride 101, bicarb 9, anion gap 23, BUN 17, creatinine 0.8, glucose 190, lactic acid 1.9, calcium 9.8, magnesium 1.9, total bilirubin 0.8, AST 30, ALT 23, alk phos 85, troponin less than 0.012, total protein 8.3, albumin 4.6. Urinalysis showed cloudy appearance, +1 protein, +4 glucose, plus for ketones, rare bacteria, 45 hyaline cast, negative leukocyte esterase, negative nitrites, negative blood. Positive serum acetone. Cepheid 4 negative. Vitals on admission showed temperature 97.4, pulse rate 104, respiratory rate 20, blood pressure 143/82, O2 saturation 100% on room air ED documentation reviewed. Insulin drip, D5-0.45% normal saline 150 cc/h and 0.9 normal saline 100 cc/h initiated in the ED. 1 L bolus 0.9 normal saline given in the ED. Review of systems: Pertinent positives and negatives as discussed in HPI, a complete review of systems was performed and all other systems are negative. Social history: Tobacco: Former smoker quit about 40 years ago Alcohol: Occasional alcohol use Recreational drugs: Denies illicit or recreational drug use Travel: No recent travel Physical examination: Vital signs reviewed General: non toxic, mild distress, appears at stated age Derm: no unusual rashes/lesions, warm Head: atraumatic, normocephalic, symmetric Eyes: EOMI, anicteric sclera, pupils equal round reactive to light ENT: Nose and ears atraumatic Neck: No cervical lymphadenopathy, trachea midline, supple Mouth: no lip lesion, mucus membranes moist Cardiovascular: S1S2 reg, no murmur Lungs: CTA bilateral, no rhonchi, no rales, no accessory muscle use Abdominal: soft, nondistended, nontender to palpation, no guarding Ext: muscle strength 5 out of 5 in all 4 distal and proximal extremities grossly, no gross muscle atrophy, no contractures, positive dorsalis pedis pulse bilateral, no edema Neuro: CN II-XI grossly intact, no gross focal neuro deficits Psych: Alert and oriented x 3, appropriate affect and mood Assessment/Plan: 64-year-old female with history of diabetes initiated keto diet and Jardiance recently here for evaluation of generalized weakness. Lab findings showed pertinent for DKA #. Diabetic ketoacidosis, euglycemic -Bicarb 9, anion gap 23, glucose 190 -Urinalysis showed cloudy appearance, +1 protein, +4 glucose, plus for ketones, rare bacteria, 45 hyaline cast, negative leukocyte esterase, negative nitrites, negative blood -Positive serum acetone -VBG pH 7.18, pCO2 31, pO2 12 -Continue with insulin drip -Continue with D5-4 5 NS at 150 cc/h -Zofran 4mg IV every 6 hours for nausea -Discontinue 0.9 NS IV 100cc/hr -Monitor BMP q4h, Mag, Phos -Monitor for A-Gap closure -Hold home hypoglycemic meds -N.p.o. for now -Glucose Accu-checks q1h #. Elevated hematocrit -Likely due to dehydration -Monitor CBC Chronic Conditions: #. Asthma #. Hyperlipidemia #. Sleep apnea (on CPAP) #. Hypothyroidism #. Anxiety #. Depression -Atorvastatin 40 mg p.o. daily on home med list in 09/16/2024. Will resume inpatient -Resume home venlafaxine 150 mg p.o. -On 15u Lantus twice daily AM and PM. -Albuterol nebulizer as needed for SOB -Not on Synthroid. Check TSH -Continue CPAP use if available F:D5-4 5 NS at 150 cc/h E: Monitor electrolytes including mag and phosphorus N: N.p.o. for now A: Can self ambulate DVT ppx: Lovenox 40 mg SQ daily Dispo: The patient is admitted with an anticipated greater than 2 midnight stay for evaluation of DKA CODE STATUS: Full Discussed with: patient Anticipated discharge place: Home Mily Mercado MD PGY-1 IM Dictation was produced using [employer] dictation software. please excuse any grammatical, word or spelling errors. Past Medical History Past Medical History: Asthma, Diabetes Mellitus, Hyperlipidemia, Sleep Apnea/CPAP/BIPAP, Thyroid Disorder Additional Past Medical History / Comment(s): DIET CONTROLLED DIABETIC NOW R/T WEIGHT LOSS History of Any Multi-Drug Resistant Organisms: None Reported Past Surgical History: Breast Surgery, Section, Cholecystectomy Additional Past Surgical History / Comment(s): DEMETRIA FUNDOPLASTY, partial THYROIDECTOMY. LEFT BREAST BENIGN lumpectomy Past Anesthesia/Blood Transfusion Reactions: No Reported Reaction Past Psychological History: Anxiety, Depression Smoking Status: Never smoker Past Alcohol Use History: None Reported Past Drug Use History: None Reported - Past Family History Father History Unknown: Yes Family Medical History: Diabetes Mellitus Medications and Allergies Home Medications Medication Instructions Recorded Confirmed Type Venlafaxine HCl ER [Effexor XR] 150 mg PO HS 12/12/15 07/05/24 History Allergies Allergy/AdvReac Type Severity Reaction Status Date / Time codeine AdvReac Nausea & Verified 09/24/24 20:36 Vomiting Sulfa (Sulfonamide AdvReac Nausea & Verified 09/24/24 20:36 Antibiotics) Vomiting Physical Exam Vitals: Vital Signs Temp Pulse Resp BP Pulse Ox 09/24/24 22:37 97.8 F 76 16 151/83 100 09/24/24 20:37 97.4 F L 104 H 20 143/82 100 Intake and Output 09/24/24 09/24/24 09/25/24 14:59 22:59 06:59 Other: Weight 97.522 kg Results CBC & Chem 7: 09/24/24 21:18 09/25/24 00:29 Labs: Abnormal Lab Results - Last 24 Hours (Table) 09/24/24 09/24/24 09/24/24 Range/Units 21:15 21:18 21:18 RBC 5.47 H (3.80-5.40) m/uL Hct 47.0 H (34.0-46.0) % MCHC 30.8 L (31.0-37.0) g/dL Sodium 133 L (137-145) mmol/L Carbon Dioxide 9 L* (22-30) mmol/L Glucose 190 H (74-99) mg/dL Total Protein 8.3 H (6.3-8.2) g/dL Urine Appearance Cloudy H (Clear) Urine Protein 1+ H (Negative) Urine Glucose (UA) 4+ H (Negative) Urine Ketones 4+ H (Negative) Ur Squamous Epith Cells 10 H (0-4) /hpf Amorphous Sediment Rare H (None) /hpf Urine Bacteria Rare H (None) /hpf Hyaline Casts 45 H (0-2) /lpf Urine Mucus Rare H (None) /hpf
[2024-09-25] MEDS ORDERED: ALBUTEROL NEBULIZED 2.5 MG/3 ML INHALATION PRN (00:49)
[2024-09-25 00:53] LABS: Glucose,Whole Blood 101 mg/dL (70-110)
[2024-09-25 01:01] LABS: African American GFR (CKD) >90 (>60 ml/min/1.73 sqM); Anion Gap 22 mmol/L; Blood Urea Nitrogen 16 mg/dL (7-17); Chloride 106 mmol/L (98-107); Glucose 128 mg/dL (74-99); Non-African American GFR(CKD) >90 (>60 ml/min/1.73 sqM); Potassium 4.7 mmol/L (3.5-5.1); Sodium 137 mmol/L (137-145)
[2024-09-25 01:02] LABS: Carbon Dioxide 9 mmol/L (22-30)
[2024-09-25 01:59] LABS: Glucose,Whole Blood 74 mg/dL (70-110)
[2024-09-25 02:35] LABS: Glucose,Whole Blood 77 mg/dL (70-110)
[2024-09-25 03:04] LABS: Glucose,Whole Blood 112 mg/dL (70-110)
[2024-09-25 04:01] LABS: Glucose,Whole Blood 106 mg/dL (70-110)
[2024-09-25 04:57] LABS: African American GFR (CKD) >90 (>60 ml/min/1.73 sqM); Anion Gap 16 mmol/L; Blood Urea Nitrogen 14 mg/dL (7-17); Carbon Dioxide 10 mmol/L (22-30); Chloride 109 mmol/L (98-107); Glucose 105 mg/dL (74-99); Non-African American GFR(CKD) >90 (>60 ml/min/1.73 sqM); Potassium 4.5 mmol/L (3.5-5.1); Sodium 135 mmol/L (137-145)
[2024-09-25 05:01] LABS: HCT 45.6 % (34.0-46.0); HGB 13.9 gm/dL (11.4-16.0); Hypochromasia Marked; MCH 26.6 pg (25.0-35.0); MCHC 30.6 g/dL (31.0-37.0); Mean Platelet Volume 6.8; Platelet Count 308 k/uL (150-450); RBC 5.24 m/uL (3.80-5.40); RDW 13.2 % (11.5-15.5); WBC 9.5 k/uL (3.8-10.6)
[2024-09-25 05:03] LABS: Glucose,Whole Blood 101 mg/dL (70-110)
[2024-09-25 05:57] LABS: Glucose,Whole Blood 114 mg/dL (70-110)
[2024-09-25 06:07] LABS: Band Neutrophils % 1 %; Monocytes # (M) 1.05 k/uL (0-1.0); Neutrophils % (M) 47 %; Nucleated Red Blood Cells 0 /100 WBC (0-0); Total Cells Counted 100
[2024-09-25 07:04] LABS: Glucose,Whole Blood 140 mg/dL (70-110)
[2024-09-25 08:04] LABS: Glucose,Whole Blood 166 mg/dL (70-110)
[2024-09-25] MEDS: ENOXAPARIN 40 MG/0.4 ML SYRINGE SQ SCH (08:11)
[2024-09-25 09:05] LABS: Glucose,Whole Blood 181 mg/dL (70-110)
[2024-09-25 09:29] LABS: African American GFR (CKD) >90 (>60 ml/min/1.73 sqM); Anion Gap 15 mmol/L; Blood Urea Nitrogen 11 mg/dL (7-17); Carbon Dioxide 14 mmol/L (22-30); Chloride 107 mmol/L (98-107); Glucose 177 mg/dL (74-99); Magnesium 1.8 mg/dL (1.6-2.3); Non-African American GFR(CKD) >90 (>60 ml/min/1.73 sqM); Phosphorus 2.3 mg/dL (2.5-4.5); Potassium 4.5 mmol/L (3.5-5.1); Sodium 136 mmol/L (137-145)
[2024-09-25 10:04] LABS: Glucose,Whole Blood 153 mg/dL (70-110)
[2024-09-25 11:02] LABS: Glucose,Whole Blood 162 mg/dL (70-110)
[2024-09-25 12:07] LABS: Glucose,Whole Blood 165 mg/dL (70-110)
[2024-09-25 12:54] LABS: African American GFR (CKD) >90 (>60 ml/min/1.73 sqM); Anion Gap 13 mmol/L; Blood Urea Nitrogen 9 mg/dL (7-17); Calcium 9.2 mg/dL (8.4-10.2); Carbon Dioxide 15 mmol/L (22-30); Chloride 106 mmol/L (98-107); Glucose 182 mg/dL (74-99); Non-African American GFR(CKD) >90 (>60 ml/min/1.73 sqM); Phosphorus 2.1 mg/dL (2.5-4.5); Potassium 4.3 mmol/L (3.5-5.1); Sodium 134 mmol/L (137-145)
[2024-09-25] MEDS: SODIUM PHOSPHATE 15 MMOL in DEXTROSE 5% IN WATER 250 ML IVPB ONE (12:55)
[2024-09-25 13:05] LABS: Glucose,Whole Blood 171 mg/dL (70-110)
[2024-09-25 14:03] LABS: Glucose,Whole Blood 185 mg/dL (70-110)
--- NOTE | 2024-09-25 14:14 | P.PN ---
Subjective Progress Note Date: 09/25/24 No new complaitns. Reports some improvement of nausea today. AGAP is improving. Gen: In NAD, non-toxic HEENT: normocephalic, atraumatic, hearing acuity is intant, mucous membranes moist CVS: perfusing all extremities well, no pitting edema, Respiratory: symmetric chest expansion, no accessory muscle use, GI: soft, NTTP, ND, : no suprapubic tenderness, no CVA tenderness MSK/Derm: no rashes, cyanosis Neuro: CN II-XII intact, no motor weakness, Psych: cooperative, euthymic mood, judgment and insight is intact Hospital Course: Patient is a 64-year-old female with asthma, diabetes (controlled with diet and not on any medications), hyperlipidemia, sleep apnea, hypothyroidism, anxiety, depression here for increased weakness. On admission, KUB x-ray showed no significant fecal retention. Chest x-ray showed no acute pulmonary process. EKG showed sinus rhythm with a rate of 98 bpm, peaked P waves, no ST-T changes, QTc 426 MS. Labs on admission showed WBC 7.4, hemoglobin 14.5, platelet count 351,000, RBC elevated at 547, hematocrit elevated at 47, PTT 28.2, INR 1, PT 11.4, sodium 133, potassium 4.9, chloride 101, bicarb 9, anion gap 23, BUN 17, creatinine 0.8, glucose 190, lactic acid 1.9, calcium 9.8, magnesium 1.9, total bilirubin 0.8, AST 30, ALT 23, alk phos 85, troponin less than 0.012, total protein 8.3, albumin 4.6. Urinalysis showed cloudy appearance, +1 protein, +4 glucose, plus for ketones, rare bacteria, 45 hyaline cast, negative leukocyte esterase, negative nitrites, negative blood. Positive serum acetone. Cepheid 4 negative. Vitals on admission showed temperature 97.4, pulse rate 104, respiratory rate 20, blood pressure 143/82, O2 saturation 100% on room air Assessment/Plan: 64-year-old female with history of diabetes initiated keto diet and Jardiance recently here for evaluation of generalized weakness. Lab findings showed pertinent for DKA #. Diabetic ketoacidosis, euglycemic -Bicarb 9, anion gap 23, glucose 190 -Urinalysis showed cloudy appearance, +1 protein, +4 glucose, plus for ketones, rare bacteria, 45 hyaline cast, negative leukocyte esterase, negative nitrites, negative blood -Positive serum acetone -VBG pH 7.18, pCO2 31, pO2 12 -Continue with insulin drip -Continue with D5-4 5 NS at 150 cc/h -Zofran 4mg IV every 6 hours for nausea -Discontinue 0.9 NS IV 100cc/hr -Monitor BMP q4h, Mag, Phos -Monitor for AGAP closure -Hold home hypoglycemic meds -N.p.o. advanced to [facility] -Glucose Accu-checks q1h #. Elevated hematocrit -Likely due to dehydration -Monitor CBC Chronic Conditions: #. Asthma #. Hyperlipidemia #. Sleep apnea (on CPAP) #. Hypothyroidism #. Anxiety #. Depression -Atorvastatin 40 mg p.o. daily on home med list in 09/16/2024. Will resume inpatient -Resume home venlafaxine 150 mg p.o. -On 15u Lantus twice daily AM and PM. -Albuterol nebulizer as needed for SOB -Not on Synthroid. Check TSH -Continue CPAP use if available F:D5-4 5 NS at 150 cc/h E: Monitor electrolytes including mag and phosphorus A: Can self ambulate DVT ppx: Lovenox 40 mg SQ daily Dispo: The patient is admitted with an anticipated greater than 2 midnight stay for evaluation of DKA CODE STATUS: Full Discussed with: patient Anticipated discharge place: Home Objective - Vital Signs Vital signs: Vital Signs Temp 98.1 F 09/25/24 08:07 Pulse 83 09/25/24 11:15 Resp 14 09/25/24 11:15 BP 111/63 09/25/24 11:15 Pulse Ox 96 09/25/24 11:15 FiO2 Intake & Output 09/24/24 09/25/24 09/25/24 18:59 06:59 18:59 Intake Total 33.822 250.371 Balance 33.822 250.371 Weight 97.522 kg Intake: IV 10 Invasive Line 2 10 Intake, IV Titration 33.822 0.371 Amount Insulin Regular 100 unit 33.822 0.371 In Sodium Chloride 0.9% 100 ml @ 0.1 UNITS/KG/HR 9.85 mls/hr IV .[id number] LUC Rx#:[id number] Oral 240 Other: Voiding Method Toilet Toilet - Labs CBC & Chem 7: 09/25/24 04:21 09/25/24 12:31 Labs: Abnormal Lab Results - Last 24 Hours (Table) 09/24/24 09/24/24 09/24/24 Range/Units 21:15 21:18 21:18 RBC 5.47 H (3.80-5.40) m/uL Hct 47.0 H (34.0-46.0) % MCHC 30.8 L (31.0-37.0) g/dL Monocytes # (Manual) (0-1.0) k/uL VBG pH (7.31-7.41) VBG pCO2 (37-51) mmHg VBG HCO3 (24-28) mmol/L Sodium 133 L (137-145) mmol/L Chloride (98-107) mmol/L Carbon Dioxide 9 L* (22-30) mmol/L Glucose 190 H (74-99) mg/dL POC Glucose (mg/dL) (70-110) mg/dL Phosphorus (2.5-4.5) mg/dL Total Protein 8.3 H (6.3-8.2) g/dL Urine Appearance Cloudy H (Clear) Urine Protein 1+ H (Negative) Urine Glucose (UA) 4+ H (Negative) Urine Ketones 4+ H (Negative) Ur Squamous Epith Cells 10 H (0-4) /hpf Amorphous Sediment Rare H (None) /hpf Urine Bacteria Rare H (None) /hpf Hyaline Casts 45 H (0-2) /lpf Urine Mucus Rare H (None) /hpf 09/24/24 09/24/24 09/25/24 Range/Units 22:36 23:42 00:29 RBC (3.80-5.40) m/uL Hct (34.0-46.0) % MCHC (31.0-37.0) g/dL Monocytes # (Manual) (0-1.0) k/uL VBG pH 7.18 L* (7.31-7.41) VBG pCO2 31 L (37-51) mmHg VBG HCO3 12 L (24-28) mmol/L Sodium (137-145) mmol/L Chloride (98-107) mmol/L Carbon Dioxide 9 L* (22-30) mmol/L Glucose 128 H (74-99) mg/dL POC Glucose (mg/dL) 143 H (70-110) mg/dL Phosphorus (2.5-4.5) mg/dL Total Protein (6.3-8.2) g/dL Urine Appearance (Clear) Urine Protein (Negative) Urine Glucose (UA) (Negative) Urine Ketones (Negative) Ur Squamous Epith Cells (0-4) /hpf Amorphous Sediment (None) /hpf Urine Bacteria (None) /hpf Hyaline Casts (0-2) /lpf Urine Mucus (None) /hpf 09/25/24 09/25/24 09/25/24 Range/Units 03:02 04:21 04:21 RBC (3.80-5.40) m/uL Hct (34.0-46.0) % MCHC 30.6 L (31.0-37.0) g/dL Monocytes # (Manual) 1.05 H (0-1.0) k/uL VBG pH (7.31-7.41) VBG pCO2 (37-51) mmHg VBG HCO3 (24-28) mmol/L Sodium 135 L (137-145) mmol/L Chloride 109 H (98-107) mmol/L Carbon Dioxide 10 L (22-30) mmol/L Glucose 105 H (74-99) mg/dL POC Glucose (mg/dL) 112 H (70-110) mg/dL Phosphorus (2.5-4.5) mg/dL Total Protein (6.3-8.2) g/dL Urine Appearance (Clear) Urine Protein (Negative) Urine Glucose (UA) (Negative) Urine Ketones (Negative) Ur Squamous Epith Cells (0-4) /hpf Amorphous Sediment (None) /hpf Urine Bacteria (None) /hpf Hyaline Casts (0-2) /lpf Urine Mucus (None) /hpf 09/25/24 09/25/24 09/25/24 Range/Units 05:55 07:02 07:59 RBC (3.80-5.40) m/uL Hct (34.0-46.0) % MCHC (31.0-37.0) g/dL Monocytes # (Manual) (0-1.0) k/uL VBG pH (7.31-7.41) VBG pCO2 (37-51) mmHg VBG HCO3 (24-28) mmol/L Sodium (137-145) mmol/L Chloride (98-107) mmol/L Carbon Dioxide (22-30) mmol/L Glucose (74-99) mg/dL POC Glucose (mg/dL) 114 H 140 H 166 H (70-110) mg/dL Phosphorus (2.5-4.5) mg/dL Total Protein (6.3-8.2) g/dL Urine Appearance (Clear) Urine Protein (Negative) Urine Glucose (UA) (Negative) Urine Ketones (Negative) Ur Squamous Epith Cells (0-4) /hpf Amorphous Sediment (None) /hpf Urine Bacteria (None) /hpf Hyaline Casts (0-2) /lpf Urine Mucus (None) /hpf 09/25/24 09/25/24 09/25/24 Range/Units 09:03 09:04 10:01 RBC (3.80-5.40) m/uL Hct (34.0-46.0) % MCHC (31.0-37.0) g/dL Monocytes # (Manual) (0-1.0) k/uL VBG pH (7.31-7.41) VBG pCO2 (37-51) mmHg VBG HCO3 (24-28) mmol/L Sodium 136 L (137-145) mmol/L Chloride (98-107) mmol/L Carbon Dioxide 14 L (22-30) mmol/L Glucose 177 H (74-99) mg/dL POC Glucose (mg/dL) 181 H 153 H (70-110) mg/dL Phosphorus 2.3 L (2.5-4.5) mg/dL Total Protein (6.3-8.2) g/dL Urine Appearance (Clear) Urine Protein (Negative) Urine Glucose (UA) (Negative) Urine Ketones (Negative) Ur Squamous Epith Cells (0-4) /hpf Amorphous Sediment (None) /hpf Urine Bacteria (None) /hpf Hyaline Casts (0-2) /lpf Urine Mucus (None) /hpf 09/25/24 09/25/24 09/25/24 Range/Units 11:00 12:05 12:31 RBC (3.80-5.40) m/uL Hct (34.0-46.0) % MCHC (31.0-37.0) g/dL Monocytes # (Manual) (0-1.0) k/uL VBG pH (7.31-7.41) VBG pCO2 (37-51) mmHg VBG HCO3 (24-28) mmol/L Sodium 134 L (137-145) mmol/L Chloride (98-107) mmol/L Carbon Dioxide 15 L (22-30) mmol/L Glucose 182 H (74-99) mg/dL POC Glucose (mg/dL) 162 H 165 H (70-110) mg/dL Phosphorus 2.1 L (2.5-4.5) mg/dL Total Protein (6.3-8.2) g/dL Urine Appearance (Clear) Urine Protein (Negative) Urine Glucose (UA) (Negative) Urine Ketones (Negative) Ur Squamous Epith Cells (0-4) /hpf Amorphous Sediment (None) /hpf Urine Bacteria (None) /hpf Hyaline Casts (0-2) /lpf Urine Mucus (None) /hpf 09/25/24 09/25/24 Range/Units 13:03 14:01 RBC (3.80-5.40) m/uL Hct (34.0-46.0) % MCHC (31.0-37.0) g/dL Monocytes # (Manual) (0-1.0) k/uL VBG pH (7.31-7.41) VBG pCO2 (37-51) mmHg VBG HCO3 (24-28) mmol/L Sodium (137-145) mmol/L Chloride (98-107) mmol/L Carbon Dioxide (22-30) mmol/L Glucose (74-99) mg/dL POC Glucose (mg/dL) 171 H 185 H (70-110) mg/dL Phosphorus (2.5-4.5) mg/dL Total Protein (6.3-8.2) g/dL Urine Appearance (Clear) Urine Protein (Negative) Urine Glucose (UA) (Negative) Urine Ketones (Negative) Ur Squamous Epith Cells (0-4) /hpf Amorphous Sediment (None) /hpf Urine Bacteria (None) /hpf Hyaline Casts (0-2) /lpf Urine Mucus (None) /hpf
[2024-09-25 15:05] LABS: Glucose,Whole Blood 206 mg/dL (70-110)
[2024-09-25 16:06] LABS: Glucose,Whole Blood 186 mg/dL (70-110)
[2024-09-25 17:02] LABS: Glucose,Whole Blood 237 mg/dL (70-110)
[2024-09-25 18:00] LABS: African American GFR (CKD) >90 (>60 ml/min/1.73 sqM); Anion Gap 13 mmol/L; Blood Urea Nitrogen 9 mg/dL (7-17); Calcium 8.9 mg/dL (8.4-10.2); Carbon Dioxide 17 mmol/L (22-30); Chloride 106 mmol/L (98-107); Glucose 179 mg/dL (74-99); Non-African American GFR(CKD) >90 (>60 ml/min/1.73 sqM); Phosphorus 2.7 mg/dL (2.5-4.5); Potassium 4.3 mmol/L (3.5-5.1); Sodium 136 mmol/L (137-145)
[2024-09-25 18:05] LABS: Glucose,Whole Blood 229 mg/dL (70-110)
[2024-09-25 19:02] LABS: Glucose,Whole Blood 212 mg/dL (70-110)
[2024-09-25 20:01] LABS: Glucose,Whole Blood 210 mg/dL (70-110)
[2024-09-25 21:05] LABS: Glucose,Whole Blood 174 mg/dL (70-110)
[2024-09-25 21:47] LABS: African American GFR (CKD) >90 (>60 ml/min/1.73 sqM); Anion Gap 12 mmol/L; Blood Urea Nitrogen 7 mg/dL (7-17); Calcium 8.9 mg/dL (8.4-10.2); Carbon Dioxide 16 mmol/L (22-30); Chloride 110 mmol/L (98-107); Glucose 183 mg/dL (74-99); Non-African American GFR(CKD) >90 (>60 ml/min/1.73 sqM); Phosphorus 2.1 mg/dL (2.5-4.5); Potassium 4.3 mmol/L (3.5-5.1); Sodium 138 mmol/L (137-145)
[2024-09-25 22:04] LABS: Glucose,Whole Blood 156 mg/dL (70-110)
[2024-09-25] MEDS: ATORVASTATIN 40 MG TAB PO SCH (22:07)
[2024-09-25 23:06] LABS: Glucose,Whole Blood 199 mg/dL (70-110)
[2024-09-26 00:01] LABS: Glucose,Whole Blood 163 mg/dL (70-110)
[2024-09-26 01:34] LABS: African American GFR (CKD) >90 (>60 ml/min/1.73 sqM); Anion Gap 10 mmol/L; Blood Urea Nitrogen 6 mg/dL (7-17); Calcium 9.2 mg/dL (8.4-10.2); Carbon Dioxide 19 mmol/L (22-30); Chloride 106 mmol/L (98-107); Glucose 182 mg/dL (74-99); Non-African American GFR(CKD) >90 (>60 ml/min/1.73 sqM); Potassium 4.1 mmol/L (3.5-5.1); Sodium 135 mmol/L (137-145)
[2024-09-26 02:01] LABS: Glucose,Whole Blood 181 mg/dL (70-110)
[2024-09-26] MEDS: SODIUM PHOSPHATE 30 MMOL in DEXTROSE 5% IN WATER 250 ML IVPB ONE (03:41)
[2024-09-26 06:04] LABS: Glucose,Whole Blood 155 mg/dL (70-110)
[2024-09-26] MEDS ORDERED: Phosphorus Replacement Protoco 1 EACH MISC MISCELLANE PRN (07:56)
[2024-09-26 09:26] LABS: African American GFR (CKD) >90 (>60 ml/min/1.73 sqM); Anion Gap 13 mmol/L; Blood Urea Nitrogen 5 mg/dL (7-17); Calcium 8.6 mg/dL (8.4-10.2); Carbon Dioxide 18 mmol/L (22-30); Chloride 105 mmol/L (98-107); Glucose 239 mg/dL (74-99); Non-African American GFR(CKD) >90 (>60 ml/min/1.73 sqM); Phosphorus 4.3 mg/dL (2.5-4.5); Sodium 136 mmol/L (137-145)
[2024-09-26] MEDS: POTAS-SOD-PHOS 280-160-250 MG 1 EACH PACKET PO ONE (10:21)
[2024-09-26 11:00] VITALS: BMI 31.7
[2024-09-26 11:21] VITALS: RESP 17
[2024-09-26 11:24] LABS: Glucose,Whole Blood 202 mg/dL (70-110)
[2024-09-26 12:52] VITALS: BP 125/67; PULSE 97; TEMP 98.2
--- NOTE | 2024-09-26 14:02 | P.DS ---
Providers Date of admission: 09/24/24 23:13 Expected date of discharge: 09/26/24 Attending physician: Ren Beth MD Primary care physician: Sami Eli Hospital Course: #. Diabetic ketoacidosis, euglycemic #. Elevated hematocrit #. Asthma #. Hyperlipidemia #. Sleep apnea (on CPAP) #. Hypothyroidism #. Anxiety #. Depression Gen: In NAD, non-toxic HEENT: normocephalic, atraumatic, hearing acuity is intant, mucous membranes moist CVS: perfusing all extremities well, no pitting edema, Respiratory: symmetric chest expansion, no accessory muscle use, GI: soft, NTTP, ND, : no suprapubic tenderness, no CVA tenderness MSK/Derm: no rashes, cyanosis Neuro: CN II-XII intact, no motor weakness, Psych: cooperative, euthymic mood, judgment and insight is intact Hospital Course: Patient is a 64-year-old female with asthma, diabetes (controlled with diet and not on any medications), hyperlipidemia, sleep apnea, hypothyroidism, anxiety, depression here for increased weakness. On admission, KUB x-ray showed no significant fecal retention. Chest x-ray showed no acute pulmonary process. EKG showed sinus rhythm with a rate of 98 bpm, peaked P waves, no ST-T changes, QTc 426 MS. Labs on admission showed WBC 7.4, hemoglobin 14.5, platelet count 351,000, RBC elevated at 547, hematocrit elevated at 47, PTT 28.2, INR 1, PT 11.4, sodium 133, potassium 4.9, chloride 101, bicarb 9, anion gap 23, BUN 17, creatinine 0.8, glucose 190, lactic acid 1.9, calcium 9.8, magnesium 1.9, total bilirubin 0.8, AST 30, ALT 23, alk phos 85, troponin less than 0.012, total protein 8.3, albumin 4.6. Urinalysis showed cloudy appearance, +1 protein, +4 glucose, plus for ketones, rare bacteria, 45 hyaline cast, negative leukocyte esterase, negative nitrites, negative blood. Positive serum acetone. Cepheid 4 negative. Vitals on admission showed temperature 97.4, pulse rate 104, respiratory rate 20, blood pressure 143/82, O2 saturation 100% on room air Patient was admitted for euglycemic diabetic ketoacidosis and was started on insulin drip, had electrolytes checked frequently and replaced as appropriate per protocol. Patient was ultimately able to tolerate a normal diet and was transitioned back to subcu insulin on discharge. She was informed that she should discontinue the use of Jardiance altogether. She was prescribed aspart in addition to her home Lantus dose which was changed. She was provided referral to the [facility] for follow-up. I spent 36 minutes coordinating this discharge Patient Condition at Discharge: Good Plan - Discharge Summary Discharge Rx Participant: Yes New Discharge Prescriptions: New INSULIN LISPRO (HumaLOG) [HumaLOG] 5 units SQ AC-TID #1 each Atorvastatin [Lipitor] 40 mg PO HS #30 tab Continue Venlafaxine HCl ER [Effexor XR] 150 mg PO DAILY Changed Insulin Glargine,Hum.rec.anlog [Lantus Solostar Pen] 10 units SQ BID #1 each Discharge Medication List Venlafaxine HCl ER [Effexor XR] 150 mg PO DAILY 12/12/15 [History] Atorvastatin [Lipitor] 40 mg PO HS #30 tab 09/26/24 [Rx] INSULIN LISPRO (HumaLOG) [HumaLOG] 5 units SQ AC-TID #1 each 09/26/24 [Rx] Insulin Glargine,Hum.rec.anlog [Lantus Solostar Pen] 10 units SQ BID #1 each 09/26/24 [Rx] Follow up Appointment(s)/Referral(s): [facility] [NON-STAFF] - 1 Week (First available appointment, referred by Dr. Aragon for hospital follow up.) Patient Instructions/Handouts: Insulin Aspart, Recombinant (By injection), Insulin Glargine (By injection), Diabetic Ketoacidosis (IP) Activity/Diet/Wound Care/Special Instructions: DISCONTINUE the use of jardiance - this will lead to further risk of future episodes of diabetic ketoacidosis Check your sugars daily in the morning and before meals and record in a log, bring your log with you to your follow up appointment. Do not take your pre- meal aspart insulin if you are low in blood sugar. Discharge Disposition: HOME SELF-CARE
== END 2024-09-26 13:15 | disposition home or self-care (01) | DRG 639 ==
LOC: EC 20:35 → 3SCARD 23:13
PROVIDERS: ADMIT Internal Medicine; ATTEND Internal Medicine
DX: E11.10 Type 2 diabetes mellitus with ketoacidosis without coma (principal); E03.9 Hypothyroidism, unspecified; F32.A Depression, unspecified; J45.909 Unspecified asthma, uncomplicated; Z79.4 Long term (current) use of insulin; Z11.52 Encounter for screening for COVID-19; E78.5 Hyperlipidemia, unspecified; E86.0 Dehydration; R71.8 Other abnormality of red blood cells; F41.9 Anxiety disorder, unspecified; G47.30 Sleep apnea, unspecified; K59.00 Constipation, unspecified; Z87.891 Personal history of nicotine dependence; Z88.5 Allergy status to narcotic agent; Z88.2 Allergy status to sulfonamides; Z90.49 Acquired absence of other specified parts of digestive tract
CPT/HCPCS: 36415; 71046; 74018; 80048; 80051; 80053; 81001; 82009; 82565; 82803; 82947; 83605; 83735; 84100; 84443; 84484; 84520; 85025; 85610; 85730; 87636; 93005; 96365; 96366; 96375; 99291

== ENCOUNTER 2025-02-26 12:20 | Emergency (ER) | payer OTHER ==
[2025-02-26 12:26] VITALS: BP 132/74; PULSE 85; RESP 20; TEMP 98
[2025-02-26 12:28] LABS: Glucose,Whole Blood 235 mg/dL (70-110)
--- NOTE | 2025-02-26 13:19 | ED ---
General Adult HPI - General Chief complaint: Weakness Stated complaint: Weakness Time Seen by Provider: 02/26/25 13:05 Source: patient, RN notes reviewed, old records reviewed Mode of arrival: ambulatory Limitations: no limitations - History of Present Illness Initial comments: 64-year-old female who presents apartment complaining of generalized weakness. It has been ongoing for the last 7 to 10 days. No known provocative factors. States she may be experiencing it from the heat or possible high blood sugars that are intermittently elevated. States that it occasionally gets in the mid 200s. Does have a glucometer that does monitor it frequently. States she has been compliant with all medications. Does have a history of diabetes, asthma, hyperlipidemia, thyroid disease. Denies any fevers, chills, cough, congestion, chest pain, shortness of breath, nausea, vomiting, constipation, diarrhea. Does endorse some mild suprapubic tightness and discomfort. Denies any dysuria or hematuria. States she was at [employer] when she felt like she could not stand up any longer due to the generalized weakness and presents for further evaluation at this time. No cardiac history.I evaluated the patient when she was placed in a there was a delay of the patient did have to wait for room to be cleaned prior to going back. - Related Data Home Medications Medication Instructions Recorded Confirmed Venlafaxine HCl ER [Effexor XR] 150 mg PO DAILY 12/12/15 09/25/24 Previous Rx's Medication Instructions Recorded Atorvastatin [Lipitor] 40 mg PO HS #30 tab 09/26/24 INSULIN LISPRO (HumaLOG) [HumaLOG] 5 units SQ AC-TID #1 each 09/26/24 Insulin Glargine,Hum.rec.anlog 10 units SQ BID #1 each 09/26/24 [Lantus Solostar Pen] Allergies Allergy/AdvReac Type Severity Reaction Status Date / Time codeine AdvReac Nausea & Verified 02/26/25 12:25 Vomiting Sulfa (Sulfonamide AdvReac Nausea & Verified 02/26/25 12:25 Antibiotics) Vomiting Review of Systems ROS Statement: Those systems with pertinent positive or pertinent negative responses have been documented in the HPI. Review of Systems: CONST: Denies fever EYES: Denies blurry vision ENT: Denies nasal congestion C/V: Denies Chest pain RESP: Denies shortness of breath GI: Denies abdominal pain : Denies dysuria SKIN: Denies rash. MSK: Denies joint pain. NEURO: Denies headache ROS Other: All systems not noted in ROS Statement are negative. Past Medical History Past Medical History: Asthma, Diabetes Mellitus, Hyperlipidemia, Sleep Apnea/CPAP/BIPAP, Thyroid Disorder Additional Past Medical History / Comment(s): DIET CONTROLLED DIABETIC NOW R/T WEIGHT LOSS History of Any Multi-Drug Resistant Organisms: None Reported Past Surgical History: Breast Surgery, Section, Cholecystectomy Additional Past Surgical History / Comment(s): DEMETRIA FUNDOPLASTY, partial THYROIDECTOMY. LEFT BREAST BENIGN lumpectomy Past Anesthesia/Blood Transfusion Reactions: No Reported Reaction Past Psychological History: Anxiety, Depression Smoking Status: Never smoker Past Alcohol Use History: None Reported Past Drug Use History: None Reported - Past Family History Father History Unknown: Yes Family Medical History: Diabetes Mellitus General Exam - General Exam Comments Initial Comments: General: Appears in no acute distress. HEAD: Normal with no signs of head trauma. EYES: PERRLA, EOMI, conjunctiva normal, no discharge. ENT: Hearing grossly intact. Mildly dry mucous membranes. RESPIRATORY: Clear breath sounds bilaterally. No wheezes, rales, or rhonchi. C/V: Regular rate and rhythm. S1 and S2 auscultated, no edema, peripheral pulses 2+ and intact throughout ABD: Abd is soft, nontender, nondistended EXT: Normal range of motion, no obvious deformity SKIN: No rashes or lesions observed on exposed skin. NEURO: Alert and oriented x 4. No focal deficits. Limitations: no limitations Course Vital Signs 02/26/25 12:23 Temperature 98 F Pulse Rate 85 Respiratory 20 Rate Blood Pressure 132/74 O2 Sat by Pulse 99 Oximetry Medical Decision Making - Medical Decision Making Was pt. sent in by a medical professional or institution (, PA, PEDIATRIC SPORTS MEDICINE SPECIALIST, urgent care, hospital, or long-term...) When possible be specific @ -No Did you speak to anyone other than the patient for history (EMS, parent, family, police, friend...)? What history was obtained from this source @ -No Did you review nursing and triage notes (agree or disagree)? Why? @ -I reviewed and agree with nursing and triage notes Were old charts reviewed (outside hosp., previous admission, EMS record, old EK G, old radiological studies, urgent care reports/EKG's, long-term records)? Report findings @ -Today's EKG compared with EKG from September 2024 with no significant acute change. Differential Diagnosis (chest pain, altered mental status, abdominal pain women, abdominal pain men, vaginal bleeding, weakness, fever, dyspnea, syncope, headache, dizziness, GI bleed, back pain, seizure, CVA, palpatations, mental health, musculoskeletal)? @ -Differential Weakness: Hypoglycemia, shock, sepsis, hyponatremia, anemia, infection, ND, ETOH, adverse medicine reaction, overdose, stroke, this is not meant to be an all-inclusive list. EKG interpreted by me (3pts min.). @ -As above X-rays interpreted by me (1pt min.). @ -Chest x-ray shows no obvious acute cardiopulmonary process. CT interpreted by me (1pt min.). @ -None done U/S interpreted by me (1pt. min.). @ -None done What testing was considered but not performed or refused? (CT, X-rays, U/S, labs)? Why? @ -None What meds were considered but not given or refused? Why? @ -None Did you discuss the management of the patient with other professionals (professionals i.e. , PA, PEDIATRIC SPORTS MEDICINE SPECIALIST, lab, RT, psych nurse, social media marketer, ore storage drier, teacher, facilities officer, caseworker)? Give summary @ -No Was smoking cessation discussed for >3mins.? @ -No Was critical care preformed (if so, how long)? @ -No Were there social determinants of health that impacted care today? How? (Homelessness, low income, unemployed, alcoholism, drug addiction, trans portation, low edu. Level, literacy, decrease access to med. care, longterm, rehab)? @ -No Was there de-escalation of care discussed even if they declined (Discuss DNR or withdrawal of care, Hospice)? DNR status @ -No What co-morbidities impacted this encounter? (DM, HTN, Smoking, COPD, CAD, Cancer, CVA, ARF, Chemo, Hep., AIDS, mental health diagnosis, sleep apnea, morbid obesity)? @ -Diabetes Was patient admitted / discharged? Hospital course, mention meds given and route, prescriptions, significant lab abnormalities, going to OR and other pertinent info. @ -Presents emergency department complaining of generalized weakness for the last 7 to 10 days. No obvious focal findings on exam other than mild dehydration. Vitals are within acceptable limits. Patient's blood sugars have been slightly elevated in the mid 200s. Will obtain generalized workup with chest x-ray. Patient be given 2 L fluid bolus. She was in agreement this plan. EKG shows no signs of acute ischemia.Chest x-ray shows no obvious acute cardiopulmonary process. Laboratory studies are all within acceptable limits e xcept for findings concerning for mild dehydration considering some 1+ ketones on UA. No obvious infectious process. No DKA. Troponin is undetectable. TSH within normal limits. On reevaluation, I discussed results with the patient. She will be discharged home at this time. Instructed follow-up with her PCP. She was in agreement this plan. I instructed the patient to follow up with their PCP in the next 1-3 days. I explained that the patient should return to the emergency department if they experience any worsening symptoms. Strict return precautions were discussed with the patient. The patient expressed understanding of these instructions. I answered all questions that the patient had. The patient was discharged home in good condition with their prescriptions and follow up information. Undiagnosed new problem with uncertain prognosis? @ -No Drug Therapy requiring intensive monitoring for toxicity (Heparin, Nitro, Insulin, Cardizem)? @ -No Were any procedures done? @ -No Diagnosis/symptom? @ -Dehydration Acute, or Chronic, or Acute on Chronic? @ -Acute Uncomplicated (without systemic symptoms) or Complicated (systemic symptoms)? @ -Uncomplicated Side effects of treatment? @ -None Exacerbation, Progression, or Severe Exacerbation] @ -No Poses a threat to life or bodily function? @ -Unlikely at this time - Lab Data Result diagrams: 02/26/25 13:14 02/26/25 13:14 Lab Results 02/26/25 02/26/25 02/26/25 Range/Units 12:27 13:14 13:14 WBC 5.57 (4.50-10.00) 10*3/uL RBC 5.07 (4.10-5.20) 10*6/uL Hgb 13.3 (12.0-15.0) g/dL Hct 41.8 (37.2-46.3) % MCV 82.4 (80.0-97.0) fL MCH 26.2 L (27.0-32.0) pg MCHC 31.8 L (32.0-37.0) g/dL Plt Count 276 (140-440) 10*3/uL MPV 9.3 L (9.5-12.2) fL Immature Gran % (Auto) 0.2 % Neutrophils % 48.0 % Lymphocytes % 44.9 % Monocytes % 6.1 % Eosinophils % 0.4 % Basophils % 0.4 % Immature Gran # 0.01 (0.00-0.04) 10*3/uL Neutrophils # 2.68 (1.80-7.70) 10*3/uL Lymphocytes # 2.50 (0.90-5.00) 10*3/uL Monocytes # 0.34 (0.20-1.00) 10*3/uL Eosinophils # 0.02 L (0.04-0.35) 10*3/uL Basophils # 0.02 (0.00-0.10) 10*3/uL PT 10.8 (10.0-12.5) sec INR 1.0 (<1.2) APTT 23.4 (22.0-30.0) sec VBG pH (7.31-7.41) VBG pCO2 (37-51) mmHg VBG HCO3 (24-28) mmol/L Sodium (137-145) mmol/L Potassium (3.5-5.1) mmol/L Chloride (98-107) mmol/L Carbon Dioxide (22-30) mmol/L Anion Gap mmol/L BUN (7-17) mg/dL Creatinine (0.52-1.04) mg/dL Est GFR (CKD-EPI)AfAm (>60 ml/min/1.73 sqM) Est GFR (CKD-EPI)NonAf (>60 ml/min/1.73 sqM) Glucose (74-99) mg/dL POC Glucose (mg/dL) 235 H (70-110) mg/dL POC Glu Tobacco Warehouse Manager ID Dori Munguia Plasma Lactic Acid Jose Antonio (0.7-2.0) mmol/L Calcium (8.4-10.2) mg/dL Total Bilirubin (0.2-1.3) mg/dL AST (14-36) U/L ALT (4-34) U/L Alkaline Phosphatase (38-126) U/L Creatine Kinase (30-135) U/L Troponin I (0.000-0.034) ng/mL Total Protein (6.3-8.2) g/dL Albumin (3.5-5.0) g/dL TSH (0.465-4.680) mIU/L Urine Color Urine Appearance (Clear) Urine pH (5.0-8.0) Ur Specific [place] (1.001-1.035) Urine Protein (Negative) Urine Glucose (UA) (Negative) Urine Ketones (Negative) Urine Blood (Negative) Urine Nitrite (Negative) Urine Bilirubin (Negative) Urine Urobilinogen (<2.0) mg/dL Ur Leukocyte Esterase (Negative) Urine RBC (0-5) /hpf Urine WBC (0-5) /hpf Ur Squamous Epith Cells (0-4) /hpf Urine Bacteria (None) /hpf Hyaline Casts (0-2) /lpf Urine Mucus (None) /hpf Acetone, Qual (Negative) Influenza Type A (PCR) (Not Detectd) Influenza Type B (PCR) (Not Detectd) RSV (PCR) (Not Detectd) SARS-CoV-2 (PCR) (Not Detectd) 02/26/25 02/26/25 02/26/25 Range/Units 13:14 13:14 13:14 WBC (4.50-10.00) 10*3/uL RBC (4.10-5.20) 10*6/uL Hgb (12.0-15.0) g/dL Hct (37.2-46.3) % MCV (80.0-97.0) fL MCH (27.0-32.0) pg MCHC (32.0-37.0) g/dL Plt Count (140-440) 10*3/uL MPV (9.5-12.2) fL Immature Gran % (Auto) % Neutrophils % % Lymphocytes % % Monocytes % % Eosinophils % % Basophils % % Immature Gran # (0.00-0.04) 10*3/uL Neutrophils # (1.80-7.70) 10*3/uL Lymphocytes # (0.90-5.00) 10*3/uL Monocytes # (0.20-1.00) 10*3/uL Eosinophils # (0.04-0.35) 10*3/uL Basophils # (0.00-0.10) 10*3/uL PT (10.0-12.5) sec INR (<1.2) APTT (22.0-30.0) sec VBG pH (7.31-7.41) VBG pCO2 (37-51) mmHg VBG HCO3 (24-28) mmol/L Sodium 135 L (137-145) mmol/L Potassium 4.7 (3.5-5.1) mmol/L Chloride 102 (98-107) mmol/L Carbon Dioxide 23 (22-30) mmol/L Anion Gap 10 mmol/L BUN 15 (7-17) mg/dL Creatinine 0.56 (0.52-1.04) mg/dL Est GFR (CKD-EPI)AfAm >90 (>60 ml/min/1.73 sqM) Est GFR (CKD-EPI)NonAf >90 (>60 ml/min/1.73 sqM) Glucose 243 H (74-99) mg/dL POC Glucose (mg/dL) (70-110) mg/dL POC Glu Tobacco Warehouse Manager ID Plasma Lactic Acid Jose Antonio 1.4 (0.7-2.0) mmol/L Calcium 9.3 (8.4-10.2) mg/dL Total Bilirubin 0.5 (0.2-1.3) mg/dL AST 23 (14-36) U/L ALT 17 (4-34) U/L Alkaline Phosphatase 87 (38-126) U/L Creatine Kinase 31 (30-135) U/L Troponin I <0.012 (0.000-0.034) ng/mL Total Protein 7.2 (6.3-8.2) g/dL Albumin 4.1 (3.5-5.0) g/dL TSH 0.925 (0.465-4.680) mIU/L Urine Color Urine Appearance (Clear) Urine pH (5.0-8.0) Ur Specific [place] (1.001-1.035) Urine Protein (Negative) Urine Glucose (UA) (Negative) Urine Ketones (Negative) Urine Blood (Negative) Urine Nitrite (Negative) Urine Bilirubin (Negative) Urine Urobilinogen (<2.0) mg/dL Ur Leukocyte Esterase (Negative) Urine RBC (0-5) /hpf Urine WBC (0-5) /hpf Ur Squamous Epith Cells (0-4) /hpf Urine Bacteria (None) /hpf Hyaline Casts (0-2) /lpf Urine Mucus (None) /hpf Acetone, Qual Negative (Negative) Influenza Type A (PCR) (Not Detectd) Influenza Type B (PCR) (Not Detectd) RSV (PCR) (Not Detectd) SARS-CoV-2 (PCR) (Not Detectd) 02/26/25 02/26/25 02/26/25 Range/Units 13:15 13:15 13:21 WBC (4.50-10.00) 10*3/uL RBC (4.10-5.20) 10*6/uL Hgb (12.0-15.0) g/dL Hct (37.2-46.3) % MCV (80.0-97.0) fL MCH (27.0-32.0) pg MCHC (32.0-37.0) g/dL Plt Count (140-440) 10*3/uL MPV (9.5-12.2) fL Immature Gran % (Auto) % Neutrophils % % Lymphocytes % % Monocytes % % Eosinophils % % Basophils % % Immature Gran # (0.00-0.04) 10*3/uL Neutrophils # (1.80-7.70) 10*3/uL Lymphocytes # (0.90-5.00) 10*3/uL Monocytes # (0.20-1.00) 10*3/uL Eosinophils # (0.04-0.35) 10*3/uL Basophils # (0.00-0.10) 10*3/uL PT (10.0-12.5) sec INR (<1.2) APTT (22.0-30.0) sec VBG pH 7.35 (7.31-7.41) VBG pCO2 46 (37-51) mmHg VBG HCO3 25 (24-28) mmol/L Sodium (137-145) mmol/L Potassium (3.5-5.1) mmol/L Chloride (98-107) mmol/L Carbon Dioxide (22-30) mmol/L Anion Gap mmol/L BUN (7-17) mg/dL Creatinine (0.52-1.04) mg/dL Est GFR (CKD-EPI)AfAm (>60 ml/min/1.73 sqM) Est GFR (CKD-EPI)NonAf (>60 ml/min/1.73 sqM) Glucose (74-99) mg/dL POC Glucose (mg/dL) (70-110) mg/dL POC Glu Tobacco Warehouse Manager ID Plasma Lactic Acid Jose Antonio (0.7-2.0) mmol/L Calcium (8.4-10.2) mg/dL Total Bilirubin (0.2-1.3) mg/dL AST (14-36) U/L ALT (4-34) U/L Alkaline Phosphatase (38-126) U/L Creatine Kinase (30-135) U/L Troponin I (0.000-0.034) ng/mL Total Protein (6.3-8.2) g/dL Albumin (3.5-5.0) g/dL TSH (0.465-4.680) mIU/L Urine Color Yellow Urine Appearance Cloudy H (Clear) Urine pH 5.5 (5.0-8.0) Ur Specific [place] 1.028 (1.001-1.035) Urine Protein 1+ H (Negative) Urine Glucose (UA) 2+ H (Negative) Urine Ketones 1+ H (Negative) Urine Blood Negative (Negative) Urine Nitrite Negative (Negative) Urine Bilirubin Negative (Negative) Urine Urobilinogen <2.0 (<2.0) mg/dL Ur Leukocyte Esterase Negative (Negative) Urine RBC 1 (0-5) /hpf Urine WBC 3 (0-5) /hpf Ur Squamous Epith Cells 7 H (0-4) /hpf Urine Bacteria Rare H (None) /hpf Hyaline Casts 12 H (0-2) /lpf Urine Mucus Few H (None) /hpf Acetone, Qual (Negative) Influenza Type A (PCR) Not Detected (Not Detectd) Influenza Type B (PCR) Not Detected (Not Detectd) RSV (PCR) Not Detected (Not Detectd) SARS-CoV-2 (PCR) Not Detected (Not Detectd) - EKG Data -: EKG Interpreted by Me EKG Comments: 12-lead Electrocardiogram Interpretation Note EKG was reviewed and interpreted by myself. 12-lead ECG performed at 1305 is interpreted by me as revealing normal sinus rhythm at a rate of 72 beats per minute. Jed[place] is normal. AR interval is 132 ms, QRS duration 78 ms, QTc is 426 ms.. There were no ST or T wave abnormalities to suggest myocardial ischemia or injury. R wave progression across the precordium was delayed. By my interpretation this EKG is non-diagnostic for acute ischemia. Compared with EKG from September 2024 with no significant acute change. Disposition Clinical Impression: Dehydration Disposition: HOME SELF-CARE Condition: Good Instructions (If sedation given, give patient instructions): Dehydration (ED) Additional Instructions: Follow-up with your PCP. Return to the ER if any worsening symptoms. Diagnosis today is dehydration. Remain compliant with your medications. Make sure you drink plenty of fluids when it is hot and humid out. Is patient prescribed a controlled substance at d/c from ED?: No Referrals: None,Stated [Primary Care Provider] - 1-2 days Forms: Area PCPs Time of Disposition: 15:15
[2025-02-26] MEDS: SODIUM CHLORIDE 0.9% 1,000 ML IV SCH (13:42)
[2025-02-26 13:48] LABS: Basophils # (A) 0.02 10*3/uL (0.00-0.10); Basophils % (A) 0.4 %; Eosinophils # (A) 0.02 10*3/uL (0.04-0.35); Eosinophils % (A) 0.4 %; HCT 41.8 % (37.2-46.3); HGB 13.3 g/dL (12.0-15.0); Lymphocytes # (A) 2.50 10*3/uL (0.90-5.00); Lymphocytes % (A) 44.9 %; MCH 26.2 pg (27.0-32.0); MCHC 31.8 g/dL (32.0-37.0); MCV 82.4 fL (80.0-97.0); Monocytes # (A) 0.34 10*3/uL (0.20-1.00); Monocytes % (A) 6.1 %; Neutrophils # (A) 2.68 10*3/uL (1.80-7.70); Neutrophils % (A) 48.0 %; Platelet Count 276 10*3/uL (140-440); RBC 5.07 10*6/uL (4.10-5.20); RDW 13.9 % (11.5-14.5); WBC 5.57 10*3/uL (4.50-10.00)
[2025-02-26 13:53] LABS: Bacteria,Urine Rare /hpf; Bilirubin,Urine Negative (Negative); Blood,Urine Negative (Negative); Color,Urine Yellow; Glucose,Urine (UA) 2+ (Negative); Hyaline Casts,Urine 12 /lpf (0-2); Ketones,Urine 1+ (Negative); Leukocyte Esterase,Urine Negative (Negative); Mucus,Urine Few /hpf; Nitrite,Urine Negative (Negative); PH, Urine 5.5 (5.0-8.0); Protein,Urine 1+ (Negative); RBC,Urine 1 /hpf (0-5); Specific Gravity,Urine 1.028 (1.001-1.035); Squamous Epithelial Cell,Urine 7 /hpf (0-4); Urobilinogen,Urine <2.0 mg/dL (<2.0); WBC,Urine 3 /hpf (0-5)
--- NOTE | 2025-02-26 13:55 | XR ---
EXAMINATION TYPE: XR chest 2V DATE OF EXAM: 02/26/2025 1:51 PM COMPARISON: 09/24/2024 CLINICAL INDICATION: Female, 64 years old with history of Weakness: Shortness of breath TECHNIQUE: XR chest 2V views of the chest are obtained. FINDINGS: Scattered senescent parenchymal changes noted. Hyperinflation compatible with COPD. No evidence for infiltrate. No evidence for atelectasis. Heart size is stable. Mediastinal structures are stable and grossly unremarkable. No evidence for hilar prominence. Degenerative changes dorsal spine. IMPRESSION: 1. No evidence for acute pulmonary disease. [facility], , 02/26/2025 1:52 PM
[2025-02-26 14:14] LABS: ALT 17 U/L (4-34); AST 23 U/L (14-36); African American GFR (CKD) >90 (>60 ml/min/1.73 sqM); Albumin 4.1 g/dL (3.5-5.0); Alkaline Phosphatase 87 U/L (38-126); Anion Gap 10 mmol/L; Blood Urea Nitrogen 15 mg/dL (7-17); Calcium 9.3 mg/dL (8.4-10.2); Carbon Dioxide 23 mmol/L (22-30); Chloride 102 mmol/L (98-107); Creatine Kinase 31 U/L (30-135); Glucose 243 mg/dL (74-99); Non-African American GFR(CKD) >90 (>60 ml/min/1.73 sqM); Potassium 4.7 mmol/L (3.5-5.1); Sodium 135 mmol/L (137-145); Total Protein 7.2 g/dL (6.3-8.2)
[2025-02-26 14:19] LABS: VBG HCO3 25.0 mmol/L (24-28); VBG PCO2 46.0 mmHg (37-51); VBG PH 7.35 (7.31-7.41)
[2025-02-26 14:21] LABS: INR 1.0 (<1.2)
[2025-02-26 14:22] LABS: Partial Thromboplastin Time 23.4 sec (22.0-30.0); Prothrombin Time 10.8 sec (10.0-12.5)
[2025-02-26 14:27] LABS: RSV Not Detected (Not Detectd)
== END 2025-02-26 15:33 | disposition home or self-care (01) ==
LOC: EC 12:20
DX: E86.0 Dehydration (principal); E11.9 Type 2 diabetes mellitus without complications; Z88.5 Allergy status to narcotic agent; Z88.2 Allergy status to sulfonamides
CPT/HCPCS: 36415; 71046; 80053; 81001; 82009; 82550; 82803; 83605; 84443; 84484; 85025; 85610; 85730; 87636; 93005; 96360; 96361; 99285